=== PATIENT | female | born 1940 | race Caucasian/White ===

== ENCOUNTER 2016-10-13 19:50 | Emergency (ER) | payer MEDICARE ==
[~2016-10-13] VITALS: Ht 152.4 cm; Wt 69.9 kg
[~2016-10-13 19:50] MED LIST: ALN70T; ASP81TEC; ATN25T; COLE1TAB PO; FOLBIC; GBPN100C; HYDR1TAB PO; HYZAAR; LOSA1TAB15 PO; LUTE10TA PO; MTF500T PO; MULT1TAB63; NFCORC1000; OMEP-10; OMG1KC; SITA100T PO; VIT1CAPS25 PO
[2016-10-13 21:14] LABS: BASOPHILS % (AUTO) 0 % (0-10); EOSINOPHILS # (AUTO) 0.2 10^3/uL (0.0-0.3); EOSINOPHILS % (AUTO) 1 % (0-10); LYMPHOCYTES # (AUTO) 2.1 X 10^3 (1.0-4.0); LYMPHOCYTES % (AUTO) 15 % (12-44); MEAN CORPUSCULAR HEMOGLOBIN 30 PG (25-34); MEAN CORPUSCULAR HGB CONC 35 G/DL (32-36); MEAN CORPUSCULAR VOLUME 87 FL (80-99); MEAN PLATELET VOLUME 9.7 FL (7.4-10.4); MONOCYTES # (AUTO) 0.9 X 10^3 (0.0-1.0); MONOCYTES % (AUTO) 7 % (0-12); NEUTROPHILS % (AUTO) 77 % (42-75); PLATELET COUNT 265 10^3/uL (130-400); RED BLOOD COUNT 4.19 10^6/uL (4.35-5.85); RED CELL DISTRIBUTION WIDTH 12.7 % (10.0-14.5); WHITE BLOOD COUNT 14.2 10^3/uL (4.3-11.0)
--- NOTE | 2016-10-13 21:36 | ED GI ---
General Chief Complaint: Abdominal/GI Problems Stated Complaint: DIARRHEA Nursing Triage Note: PT TO ED 5 W/ FOR C/O INTERMITTENT DIARRHEA X1 WK, WORSE TODAY. ALSO C/O UPPER ABD PAIN W/. Sepsis Screen: No Definite Risk Source of Information: Patient, Spouse Exam Limitations: No Limitations History of Present Illness Time Seen By Provider: 21:36 Initial Comments 76-year-old female patient presents to the emergency department complains of generalized abdominal cramping with diarrhea for one week. Reports symptoms are worse today. Denies fever, chills, melena, vomiting, hematemesis. Timing/Duration: 1 Week Severity/Quality: Cramping Location: Generalized Abdomen Radiation: No Radiation Activities at Onset: None Modifying Factors: Worsens With Defecating, Worsens With Eating Allergies and Home Medications Allergies Coded Allergies: prochlorperazine (Unverified Allergy, Intermediate, 05/23/08) Home Medications Alendronate Sodium 70 Mg Tablet, (Reported) Aspirin 81 Mg Tabec, (Reported) Atenolol 25 Mg Tablet, (Reported) Calcium 1,000 Mg Capsule, (Reported) Ciprofloxacin HCl 500 Mg Tablet, 500 MG PO BID for 7 Days, #14 Ref 0 Prescribed by: ALIS ENCINAS on 10/13/162318 Colestipol Hcl 1 Gm Tablet, 1 GM PO BID, (Reported) Gabapentin 100 Mg Cap, (Reported) Hyoscyamine Sulfate 0.125 Mg Tab.rapdis, 0.125 MG PO Q6H PRN for SPASMS, #30 Ref 0 Prescribed by: ALIS ENCINAS on 10/13/162318 Losartan/Hydrochlorothiazide 1 Tab Tablet, 1 TAB PO, (Reported) Lutein 10 Mg Tablet, 10 MG PO, (Reported) Metformin Hcl 500 Mg Tablet, 1 EACH PO DAILY, (Reported) Metronidazole 500 Mg Tablet, 500 MG PO BID, #14 Ref 0 Prescribed by: ALIS ENCINAS on 10/13/162318 Multivitamins/Minerals Therap 1 Ea Tablet, (Reported) [place]han 3 Polyunsat Fatty Acids 1,000 Mg Cap, (Reported) Omeprazole 20 Mg Capsule., (Reported) Ondansetron 8 Mg Tab.rapdis, 8 MG PO Q6H PRN for NAUSEA/VOMITING-1ST LINE, #10 Ref 0 Prescribed by: ALIS ENCINAS on 4/6/17 2319 Sitagliptin Phosphate 100 Mg Tablet, 1 EACH PO DAILY, (Reported) Review of Systems Constitutional: no symptoms reported Respiratory: No Symptoms Reported Cardiovascular: No Symptoms Reported Gastrointestinal: See HPI, Denies Abdomen Distended, Abdominal Pain ( generalized abdominal cramping), Denies Blood Streaked Stools, Denies Constipated, Diarrhea, Nausea, Poor Appetite, Denies Poor Fluid Intake, Denies Rectal Bleeding, Denies Vomiting Genitourinary: Denies Burning, Denies Frequency, Denies Flank Pain, Denies Hematuria, Denies Pain Musculoskeletal: no symptoms reported Skin: no symptoms reported Psychiatric/Neurological: No Symptoms Reported All Other Systems Reviewed Negative Unless Noted: Yes (Negative excepted noted.) Past Dkgjegv-Aqypht-Afipvd Hx Patient Social History Alcohol Use: Denies Use Recreational Drug Use: No Smoking Status: Never a Smoker Recent Foreign Travel: No Contact w/Someone Who Travel: No Recent Infectious Disease Expo: No Recent Hopitalizations: No Immunizations Up To Date Date of Pneumonia Vaccine: Apr 09, 2011 Surgeries HX Surgeries: Yes Surgeries: Gallbladder, Hysterectomy Respiratory Hx Respiratory Disorders: No Cardiovascular Hx Cardiac Disorders: No Neurological Hx Neurological Disorders: No Genitourinary Hx Genitourinary Disorders: No Gastrointestinal Hx Gastrointestinal Disorders: No Musculoskeletal Hx Musculoskeletal Disorders: No Endocrine Hx Endocrine Disorders: Yes HEENT HX ENT Disorders: Yes HEENT Disorders: Macular Degeneration Loss of Vision: Denies Cancer Hx Cancer: No Psychosocial Hx Psychiatric Problems: No Reviewed Nursing Assessment Reviewed/Agree w Nursing PMH: Yes Family Medical History Significant Family History: No Pertinent Family Hx Physical Exam Vital Signs Capillary Refill : Less Than 3 Seconds General Appearance: WD/WN, no apparent distress Respiratory: lungs clear, normal breath sounds, no respiratory distress Cardiovascular: normal peripheral pulses, regular rate, rhythm, no murmur Gastrointestinal: normal bowel sounds, soft, no organomegaly, No distended, guarding (left lower quadrant), No rebound, tenderness (generalized abdominal tenderness) Extremities: no pedal edema, normal capillary refill Back: normal inspection, no CVA tenderness Neurologic/Psychiatric: alert, normal mood/affect, oriented x 3 Progress/Results/Core Measures Results/Orders Lab Results Laboratory Tests Test 10/13/16 21:04 10/13/16 21:42 Range/Units White Blood Count 14.2 H 4.3-11.0 10^3/uL Red Blood Count 4.19 L 4.35-5.85 10^6/uL Hemoglobin 12.7 11.5-16.0 G/DL Hematocrit 37 35-52 % Mean Corpuscular Volume 87 80-99 FL Mean Corpuscular Hemoglobin 30 25-34 PG Mean Corpuscular Hemoglobin Concent 35 32-36 G/DL Red Cell Distribution Width 12.7 10.0-14.5 % Platelet Count 265 130-400 10^3/uL Mean Platelet Volume 9.7 7.4-10.4 FL Neutrophils (%) (Auto) 77 H 42-75 % Lymphocytes (%) (Auto) 15 12-44 % Monocytes (%) (Auto) 7 0-12 % Eosinophils (%) (Auto) 1 0-10 % Basophils (%) (Auto) 0 0-10 % Neutrophils # (Auto) 11.0 H 1.8-7.8 X 10^3 Lymphocytes # (Auto) 2.1 1.0-4.0 X 10^3 Monocytes # (Auto) 0.9 0.0-1.0 X 10^3 Eosinophils # (Auto) 0.2 0.0-0.3 10^3/uL Basophils # (Auto) 0.0 0.0-0.1 10^3/uL Sodium Level 137 135-145 MMOL/L Potassium Level 4.4 3.6-5.0 MMOL/L Chloride Level 105 98-107 MMOL/L Carbon Dioxide Level 22 21-32 MMOL/L Anion Gap 10 5-14 MMOL/L Blood Urea Nitrogen 17 7-18 MG/DL Creatinine 1.05 0.60-1.30 MG/DL Estimat Glomerular Filtration Rate 51 BUN/Creatinine Ratio 16 Glucose Level 125 H 70-105 MG/DL Calcium Level 9.5 8.5-10.1 MG/DL Total Bilirubin 0.6 0.1-1.0 MG/DL Aspartate Amino Transf (AST/SGOT) 37 H 5-34 U/L Alanine Aminotransferase (ALT/SGPT) 49 0-55 U/L Alkaline Phosphatase 73 40-136 U/L C-Reactive Protein High Sensitivity 0.52 H 0.00-0.50 MG/DL Total Protein 7.9 6.4-8.2 G/DL Albumin 4.3 3.2-4.5 G/DL Urine Color YELLOW Urine Clarity SLIGHTLY CLOUDY Urine pH 5 5-9 Urine Specific Ullin 1.025 H 1.016-1.022 Urine Protein NEGATIVE NEGATIVE Urine Glucose (UA) NEGATIVE NEGATIVE Urine Ketones NEGATIVE NEGATIVE Urine Nitrite NEGATIVE NEGATIVE Urine Bilirubin NEGATIVE NEGATIVE Urine Urobilinogen NORMAL NORMAL MG/DL Urine Leukocyte Esterase 1+ H NEGATIVE Urine RBC (Auto) NEGATIVE NEGATIVE Urine RBC NONE /HPF Urine WBC 0-2 /HPF Urine Squamous Epithelial Cells RARE /HPF Urine Crystals NONE /LPF Urine Bacteria NONE /HPF Urine Casts NONE /LPF Urine Mucus NEGATIVE /LPF Urine Culture Indicated NO My Orders Orders - ALIS ENCINAS Saline Lock/Iv-Start (10/13/16 20:45) Cbc With Automated Diff (10/13/16 20:45) Comprehensive Metabolic Panel (10/13/16 20:45) Hs C Reactive Protein (10/13/16 20:45) Ua Culture If Indicated (10/13/16 20:45) Saline Lock/Iv-Start (10/13/16 20:45) Ct Abdomen/Pelvis W (10/13/16 21:52) Ns Iv 1000 Ml (Sodium Chloride 0.9%) (10/13/16 21:52) Iohexol Injection (Omnipaque 350 Mg/Ml 1 (10/13/16 22:00) Ns (Ivpb) (Sodium Chloride 0.9% Ivpb Bag (10/13/16 22:00) Medications Given in ED Vital Signs/I&O Blood Pressure Mean: 105 Diagnostic Imaging Diagonstic Imaging: CT Plain Films/CT/US/NM/MRI: abdomen, pelvis Comments Apparent thickening of the colon may be due to under distention or colitis. No free fluid or free air. Incidental mild hepatomegaly and a tiny fat-containing ventral abdominal wall hernia. Prominent appendix measuring up to 7 mm in diameter without periappendiceal inflammatory changes. Reviewed: Other ([facility] report reviewed) Departure Communication Progress Notes Laboratory and diagnostic findings discussed with the patient. Patient reports feeling better with IV fluids. Plan for discharge to home. Patient given prescriptions for metronidazole and Cipro due to a history of diverticulitis. Patient reports symptoms are similar to previous episodes. Patient also given prescriptions for Levsin and Zofran. Patient to follow-up with her primary care physician for recheck. Impression Impression: Primary Impression: Diarrhea Additional Impressions: Nausea Abdominal cramping, generalized Disposition: HOME, SELF-CARE Condition: Improved Departure-Patient Inst. Decision time for Depature: 23:16 Referrals: HUSSEIN IBARRA DO (PCP/Family) Primary Care Physician Patient Instructions: Diarrhea in Adolescents and Adults, Microscopic Colitis Add. Discharge Instructions: All discharge instructions reviewed with patient and/or family. Voiced understanding. Medications as instructed. Tylenol eohl-ues-aicmxrp as directed for pain. Continue usual home medications. Clear liquid diet until symptoms improve, then increase diet slowly to a low-fat , bland diet. Follow-up with your family practitioner for recheck, call for appointment time. Return to the emergency department for worsened abdominal pain, fever, diarrhea , rectal bleeding, vomiting blood, or any other concerns. Scripts Metronidazole (Metronidazole) 500 Mg Tablet 500 MG PO BID, #14 TAB 0 Refills Prov: ALIS ENCINAS 10/13/16 Ciprofloxacin HCl (Ciprofloxacin HCl) 500 Mg Tablet 500 MG PO BID for 7 Days, #14 TAB 0 Refills Prov: ALIS ENCINAS 10/13/16 Ondansetron (Ondansetron Odt) 8 Mg Tab.rapdis 8 MG PO Q6H Y for NAUSEA/VOMITING-1ST LINE, #10 TAB 0 Refills Prov: ALIS ENCINAS 10/13/16 Hyoscyamine Sulfate (Hyoscyamine Sulfate) 0.125 Mg Tab.rapdis 0.125 MG PO Q6H Y for SPASMS, #30 TAB 0 Refills Prov: ALIS ENCINAS 10/13/16 ALIS ENCINAS Oct 13, 2016 21:36
[2016-10-13 21:42] LABS: ALBUMIN 4.3 G/DL (3.2-4.5); BILIRUBIN,TOTAL 0.6 MG/DL (0.1-1.0); CALCIUM 9.5 MG/DL (8.5-10.1); CREATININE SERUM 1.05 MG/DL (0.60-1.30); POTASSIUM 4.4 MMOL/L (3.6-5.0); TOTAL PROTEIN 7.9 G/DL (6.4-8.2); hs C REACTIVE PROTEIN 0.52 MG/DL (0.00-0.50)
[2016-10-13 21:49] LABS: BILIRUBIN,URINE NEGATIVE (NEGATIVE); KETONES,URINE NEGATIVE (NEGATIVE); LEUKOCYTE ESTERASE ,URINE 1+ (NEGATIVE); NITRITE,URINE NEGATIVE (NEGATIVE); PH,URINE 5 (5-9); PROTEIN,URINE NEGATIVE (NEGATIVE); UROBILINOGEN,URINE NORMAL (NORMAL)
[2016-10-13] MEDS ORDERED: NS IV 1000 ML 1,000 ML IV ONE (21:52)
[2016-10-13 21:57] LABS: SQUAMOUS EPITHELIAL CELL,UR RARE /HPF; WBC,URINE 0-2 /HPF
[2016-10-13] MEDS ORDERED: NS 100 ML (IVPB) BAG IV ONE (22:00)
[2016-10-13] MEDS ORDERED: IOHEXOL 350 MG/ML 100 ML (OMNIPAQUE 350) VIAL IV ONE (22:00)
[2016-10-13] MEDS ORDERED: HYOS0.1217 PO (23:19)
[2016-10-13] MEDS ORDERED: METR500T21 PO (23:19)
[2016-10-13] MEDS ORDERED: ONDA8TAB13 PO (23:19)
[2016-10-13] MEDS ORDERED: CIPR500T4 PO (23:19)
[2016-10-13 23:53] VITALS: BP 162/66
--- NOTE | 2016-10-14 08:43 | Diagnostic Imaging Report ---
PROCEDURE: CT abdomen and pelvis with contrast. TECHNIQUE: Multiple contiguous axial images were obtained through the abdomen and pelvis after administration of intravenous contrast. INDICATION: Diarrhea. 100 mL of Omnipaque 350 is administered intravenously. FINDINGS: The lung bases appear clear. The liver, the spleen, and the adrenal glands appear unremarkable. The pancreatic parenchyma is atrophic with no focal mass. There is a small hiatal hernia. Cholecystectomy clips are seen. The kidneys have symmetric enhancement and contrast excretion. There is no hydronephrosis. The abdominal aorta is normal in caliber. No para-aortic significantly enlarged lymph node is seen. There is mild thickening in the colonic wall and numerous diverticulosis within the sigmoid colon. The colonic wall thickening is not limited to the sigmoid; however, it is less prominent in the right colon. There are no pericolonic inflammatory changes seen. No evidence of bowel obstruction. The slight wall thickening also extends to the base of the appendix without periappendiceal inflammatory changes. This is favored to be secondary to colitis rather than appendicitis. There is a supraumbilical small fat-containing hernia. No significant free fluid or fluid collection in the abdomen or pelvis is seen. There is suggestion of prior hysterectomy. Correlate with surgical history. The osseous structures demonstrate degenerative changes in the lower lumbar spine and a compression fracture of T11 vertebral body that appears to be old. IMPRESSION: 1. There is mild colonic wall thickening suggestive of inflammatory or infectious colitis. This does not appear to be related to diverticulitis. Numerous diverticulosis in the sigmoid colon seen. 2. Small fat-containing supraumbilical hernia. 3. Small hiatal hernia. 4. The base of the appendix demonstrates slight thickening which is favored to be related to the colonic abnormality rather than appendicitis. This reading agrees with the [facility] report. Dictated by: Dictated on workstation # [id number]
--- OUTSIDE RECORDS SUMMARY | 2016-11-14 00:16 | XMS REPORT | Continuity of Care Document ---
Author Author [employer] Organization [facility] Address Unknown Phone Unavailable Care Team Providers Care Casino Manager Name Role Phone [employer] Unavailable Unavailable Problems Medications Allergies, Adverse Reactions, Alerts Immunizations Results Vital Signs Encounters Procedures Plan of Care Social History Assessment and Plan Family History Value Date Source Advance Directives Order Name Results Value Date Source
--- OUTSIDE RECORDS SUMMARY | 2016-11-14 00:16 | XMS REPORT | Continuity of Care Document ---
Author Author [facility] Organization [facility] Address Unknown Phone Unavailable Allergies Active Description Code Type Severity Reaction Onset Reported/Identified Relationship to Patient Clinical Status Yes prochlorperazine [id number] Drug Allergy Moderate N/A 05/23/2008 Medications Problems Date Dx Coded Attending Type Code Diagnosis Diagnosed By 11/29/2011 Ot 562.10 11/29/2011 Ot 787.91 11/29/2011 Ot V12.72 03/15/2012 Ot 805.2 03/15/2012 Ot 959.19 03/15/2012 Ot E000.8 03/15/2012 Ot E849.0 03/15/2012 Ot E885.9 04/23/2015 Ot 217 04/23/2015 Ot 610.8 04/23/2015 Ot V72.84 04/23/2015 Ot 724.02 04/23/2015 Ot 738.4 04/23/2015 Ot 756.15 04/23/2015 Ot 805.2 04/23/2015 Ot V54.17 04/23/2015 Ot 733.00 04/23/2015 HUSSEIN IBARRA DO Ot 786.09 04/23/2015 RICK IBARRA Ot 443.9 05/13/2015 HUSSEIN IBARRA DO Ot M81.0 10/14/2016 ALIS TILLMAN Ot R10.84 GENERALIZED ABDOMINAL PAIN 10/14/2016 ALIS TILLMAN Ot R11.0 NAUSEA 10/14/2016 ALIS TILLMAN Ot R19.7 DIARRHEA, UNSPECIFIED 10/14/2016 ALIS TILLMAN Ot Z79.82 INTERMEDIATE (CURRENT) USE OF ASPIRIN 10/14/2016 ALIS TILLMAN Ot Z79.899 OTHER [employer]ER (CURRENT) DRUG THERAPY Procedures Results Test Result Range Complete blood count (CBC) with automated white blood cell (WBC) differential - 10/13/16 21:04 Blood leukocytes automated count (number/volume) 14.2 10*3/ uL 4.3-11.0 Blood erythrocytes automated count (number/volume) 4.19 10*6 /uL 4.35-5.85 Venous blood hemoglobin measurement (mass/volume) 12.7 g/dL 11.5-16.0 Blood hematocrit (volume fraction) 37 % 35-52 Automated erythrocyte mean corpuscular volume 87 [foz_us] 80-99 Automated erythrocyte mean corpuscular hemoglobin (mass per erythrocyte) 30 pg 25-34 Automated erythrocyte mean corpuscular hemoglobin concentration measurement ( mass/volume) 35 g/dL 32-36 Automated erythrocyte distribution width ratio 12.7 % 10.0-14.5 Automated blood platelet count (count/volume) 265 10*3/uL 130-400 Automated blood platelet mean volume measurement 9.7 [foz_us ] 7.4-10.4 Automated blood neutrophils/100 leukocytes 77 % 42-75 Automated blood lymphocytes/100 leukocytes 15 % 12-44 Blood monocytes/100 leukocytes 7 % 0-12 Automated blood eosinophils/100 leukocytes 1 % 0-10 Automated blood basophils/100 leukocytes 0 % 0-10 Blood neutrophils automated count (number/volume) 11.0 10*3 1.8-7.8 Blood lymphocytes automated count (number/volume) 2.1 10*3 1.0-4.0 Blood monocytes automated count (number/volume) 0.9 10*3 0.0-1.0 Automated eosinophil count 0.2 10*3/uL 0.0-0.3 Automated blood basophil count (count/volume) 0.0 10*3/uL 0.0-0.1 Comprehensive metabolic panel - 10/13/16 21:04 Serum or plasma sodium measurement (moles/volume) 137 mmol/ L 135-145 Serum or plasma potassium measurement (moles/volume) 4.4 mmol/L 3.6-5.0 Serum or plasma chloride measurement (moles/volume) 105 mmol /L 98-107 Carbon dioxide 22 mmol/L 21-32 Serum or plasma anion gap determination (moles/volume) 10 mmol/L 5-14 Serum or plasma urea nitrogen measurement (mass/volume) 17 mg/dL 7-18 Serum or plasma creatinine measurement (mass/volume) 1.05 mg /dL 0.60-1.30 Serum or plasma urea nitrogen/creatinine mass ratio 16 NRG Serum or plasma creatinine measurement with calculation of estimated glomerular filtration rate 51 NRG Serum or plasma glucose measurement (mass/volume) 125 mg/dL 70-105 Serum or plasma calcium measurement (mass/volume) 9.5 mg/dL 8.5-10.1 Serum or plasma total bilirubin measurement (mass/volume) 0.6 mg/dL 0.1-1.0 Serum or plasma alkaline phosphatase measurement (enzymatic activity/volume) 73 U/L 40-136 Serum or plasma aspartate aminotransferase measurement (enzymatic activity/ volume) 37 U/L 5-34 Serum or plasma alanine aminotransferase measurement (enzymatic activity/volume ) 49 U/L 0-55 Serum or plasma protein measurement (mass/volume) 7.9 g/dL 6.4-8.2 Serum or plasma albumin measurement (mass/volume) 4.3 g/dL 3.2-4.5 Serum or plasma C reactive protein measurement (mass/volume) - 10/13/16 21:04 Serum or plasma C reactive protein measurement (mass/volume) 0.52 mg/dL 0.00-0.50 Complete urinalysis with reflex to culture - 10/13/16 21:42 Urine color determination YELLOW NRG Urine clarity determination SLIGHTLY CLOUDY NRG Urine pH measurement by test strip 5 5- 9 Specific gravity of urine by test strip 1.025 1.016-1.022 Urine protein assay by test strip, semi-quantitative NEGATIVE NEGATIVE Urine glucose detection by automated test strip NEGATIVE NEGATIVE Erythrocytes detection in urine sediment by light microscopy NEGATIVE NEGATIVE Urine ketones detection by automated test strip NEGATIVE NEGATIVE Urine nitrite detection by test strip NEGATIVE NEGATIVE Urine total bilirubin detection by test strip NEGATIVE NEGATIVE Urine urobilinogen measurement by automated test strip (mass/volume) NORMAL NORMAL Urine leukocyte esterase detection by dipstick 1+ NEGATIVE Automated urine sediment erythrocyte count by microscopy (number/high power field) NONE NRG Automated urine sediment leukocyte count by microscopy (number/high power field ) [HPF] NRG Bacteria detection in urine sediment by light microscopy NONE NRG Squamous epithelial cells detection in urine sediment by light microscopy RARE NRG Crystals detection in urine sediment by light microscopy NONE NRG Casts detection in urine sediment by light microscopy NONE NRG Mucus detection in urine sediment by light microscopy NEGATIVE NRG Complete urinalysis with reflex to culture NO NRG Encounters ACCT No. Visit Date/Time Discharge Status Pt. Type Provider Facility Loc./Unit Complaint [id number] 10/13/2016 19:51:00 2016 23:53:00 DIS Outpatient ALIS TILLMAN [facility] ER DIARRHEA [id number] 04/23/2015 09:56:00 2014 23:59:59 CLS Outpatient HUSSEIN IBARRA DO [facility] RAD [id number] 12/26/2013 08:17:00 2013 23:59:59 CLS Outpatient RICK IBARRA [facility] RAD [id number] 01/08/2013 06:24:00 2012 23:59:59 CLS Outpatient HUSSEIN IBARRA DO [facility] RAD [id number] 06/29/2012 08:12:00 Document Registration [id number] 03/22/2012 10:00:00 Document Registration [id number] 03/15/2012 19:42:00 Document Registration [id number] 11/29/2011 06:51:00 Document Registration [id number] 11/28/2011 07:58:00 Document Registration [id number] 08/03/2011 12:34:00 Document Registration
== END 2016-10-13 23:53 | disposition home or self-care (01) ==
LOC: EDUNIT# 19:50 → ER 19:51
DX: R19.7 Diarrhea, unspecified (principal); R11.0 Nausea; R10.84 Generalized abdominal pain; Z79.82 Long term (current) use of aspirin; Z79.899 Other long term (current) drug therapy
CPT/HCPCS: 36415; 74177; 80053; 81000; 85025; 86141; 96360

== ENCOUNTER 2017-06-07 09:55 | Outpatient (CLI) | payer MEDICARE ==
[~2017-06-07 09:55] MED LIST changes: +CIPR500T4 PO; +HYOS-6 PO; +METR500T21 PO; +ONDA8TAB13 PO
== END 2017-06-07 10:30 | disposition home or self-care (01) ==
LOC: SLEEP 09:55
PROVIDERS: ATTEND Internal Medicine
DX: G47.33 Obstructive sleep apnea (adult) (pediatric) (principal); G47.10 Hypersomnia, unspecified; I10 Essential (primary) hypertension

== ENCOUNTER 2017-06-29 19:33 | Outpatient (CLI) | payer MEDICARE | END 2017-06-30 06:45 | disposition home or self-care (01) | LOC: SLEEP 19:33 | PROVIDERS: ATTEND Otolaryngology Otolaryngology/Facial Plastic Surgery | DX: G47.33 Obstructive sleep apnea (adult) (pediatric) (principal) | CPT/HCPCS: 95811 ==

== ENCOUNTER 2017-10-28 12:16 | Emergency (ER) | payer MEDICARE ==
[~2017-10-28] VITALS: Ht 154.9 cm; Wt 71.2 kg
--- OUTSIDE RECORDS SUMMARY | 2017-10-28 12:21 | XMS REPORT | Continuity of Care Document ---
Author Author [facility] Organization [facility] Address Unknown Phone Unavailable Allergies Active Description Code Type Severity Reaction Onset Reported/Identified Relationship to Patient Clinical Status Yes prochlorperazine [id number] Drug Allergy Moderate N/A 05/23/2008 Medications There is no data. Problems Date Dx Coded Attending Type Code Diagnosis Diagnosed By 11/29/2011 Ot 562.10 11/29/2011 Ot 787.91 11/29/2011 Ot V12.72 03/15/2012 Ot 805.2 FX DORSAL VERTEBRA-CLOSE 03/15/2012 Ot 959.19 OTH INJURY OF OTHER SITES OF TRUNK 03/15/2012 Ot E000.8 OTHER EXTERNAL CAUSE STATUS 03/15/2012 Ot E849.0 ACCIDENT IN HOME 03/15/2012 Ot E885.9 FALL FROM SLIPPING, TRIPPING, OR STUMBLI 04/23/2015 Ot 217 04/23/2015 Ot 610.8 04/23/2015 Ot V72.84 04/23/2015 Ot 724.02 04/23/2015 Ot 738.4 04/23/2015 Ot 756.15 04/23/2015 Ot 805.2 04/23/2015 Ot V54.17 04/23/2015 Ot 733.00 04/23/2015 HUSSEIN IBARRA DO Ot 786.09 04/23/2015 RICK IBARRAP Ot 443.9 05/13/2015 HUSSEIN IBARRA DO Ot M81.0 10/13/2016 ALIS TILLMAN Ot R10.84 GENERALIZED ABDOMINAL PAIN 10/13/2016 ALIS TILLMAN Ot R11.0 NAUSEA 10/13/2016 ALIS TILLMAN Ot R19.7 DIARRHEA, UNSPECIFIED 10/13/2016 ALIS TILLMAN Ot 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 10/13/2016 ALIS TILLMAN Ot Z79.899 OTHER FPC (CURRENT) DRUG THERAPY 10/14/2016 ALIS TILLMAN Ot R10.84 GENERALIZED ABDOMINAL PAIN 10/14/2016 ALIS TILLMAN Ot R11.0 NAUSEA 10/14/2016 ALIS TILLMAN Ot R19.7 DIARRHEA, UNSPECIFIED 10/14/2016 ALIS TILLMAN Ot 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 10/14/2016 ALIS TILLMAN Ot Z79.899 OTHER GRADES 1 THROUGH 5 TEACHER (CURRENT) DRUG THERAPY 06/07/2017 HUSSEIN IBARRA DO Ot G47.10 HYPERSOMNIA, UNSPECIFIED 06/07/2017 HUSSEIN IBARRA DO, Ot G47.33 OBSTRUCTIVE SLEEP APNEA (ADULT) (PEDIATR 06/07/2017 HUSSEIN IBARRA DO Ot I10 ESSENTIAL (PRIMARY) HYPERTENSION 06/09/2017 HUSSEIN IBARRA DO Ot G47.10 HYPERSOMNIA, UNSPECIFIED 06/09/2017 HUSSEIN IBARRA DO, Ot G47.33 OBSTRUCTIVE SLEEP APNEA (ADULT) (PEDIATR 06/09/2017 HUSSEIN IBARRA DO Ot I10 ESSENTIAL (PRIMARY) HYPERTENSION 06/12/2017 Ot 724.02 SPINAL STENOSIS, LUMBAR REG, W/OUT NEURO 06/12/2017 Ot 738.4 ACQ SPONDYLOLISTHESIS 06/12/2017 Ot 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 06/12/2017 Ot 805.2 FX DORSAL VERTEBRA-CLOSE 06/12/2017 Ot V54.17 AFTERCARE HEALING TRAUMATIC FX VERTEBRAE 06/12/2017 Ot 733.00 OSTEOPOROSIS NOS 06/12/2017 HUSSEIN IBARRA DO Ot 786.09 RESPIRATORY ABNORM NEC 06/12/2017 RICK IBARRAP Ot 443.9 PERIPH VASCULAR DIS NOS 06/12/2017 HUSSEIN IBARRA DO Ot M81.0 AGE-RELATED OSTEOPOROSIS W/O CURRENT PAT 06/14/2017 HUSSEIN IBARRA DO Ot G47.10 HYPERSOMNIA, UNSPECIFIED 06/14/2017 HUSSEIN IBARRA DO Ot G47.33 OBSTRUCTIVE SLEEP APNEA (ADULT) (PEDIATR 06/14/2017 HUSSEIN IBARRA DO Ot I10 ESSENTIAL (PRIMARY) HYPERTENSION 06/23/2017 ANDREAS LEAL, AISSATOU Casey Ot G47.33 OBSTRUCTIVE SLEEP APNEA (ADULT) (PEDIATR 06/23/2017 ANDREAS LEAL, AISSATOU Casey Ot G47.33 OBSTRUCTIVE SLEEP APNEA (ADULT) (PEDIATR 06/23/2017 ANDREAS LEAL, AISSATOU Casey Ot G47.33 OBSTRUCTIVE SLEEP APNEA (ADULT) (PEDIATR 06/28/2017 ANDREAS LEAL, AISSATOU Casey Ot G47.33 OBSTRUCTIVE SLEEP APNEA (ADULT) (PEDIATR 06/28/2017 AISSATOU JOHNS MD Ot G47.33 OBSTRUCTIVE SLEEP APNEA (ADULT) (PEDIATR 06/29/2017 ANDREAS LEAL, AISSATOU Casey Ot G47.33 OBSTRUCTIVE SLEEP APNEA (ADULT) (PEDIATR 06/29/2017 AISSATOU JOHNS MD Ot G47.33 OBSTRUCTIVE SLEEP APNEA (ADULT) (PEDIATR 06/30/2017 AISSATOU JOHNS MD Ot G47.33 OBSTRUCTIVE SLEEP APNEA (ADULT) (PEDIATR 07/04/2017 AISSATOU JOHNS MD Ot G47.33 OBSTRUCTIVE SLEEP APNEA (ADULT) (PEDIATR Procedures There is no data. Results Test Result Range Complete blood count (CBC) with automated white blood cell (WBC) differential - 10/13/16 21:04 Blood leukocytes automated count (number/volume) 14.2 10*3/uL 4.3-11.0 Blood erythrocytes automated count (number/volume) 4.19 10*6/uL 4.35-5.85 Venous blood hemoglobin measurement (mass/volume) 12.7 [...] Automated blood platelet mean volume measurement 9.7 [foz_us] 7.4-10.4 Automated blood neutrophils/100 leukocytes 77 % [...] Serum or plasma sodium measurement (moles/volume) 137 mmol/L 135-145 Serum or plasma potassium measurement (moles/volume) 4.4 mmol/L 3.6-5.0 Serum or plasma chloride measurement (moles/volume) 105 mmol/L 98-107 Carbon dioxide 22 mmol/L 21-32 Serum or plasma anion gap determination (moles/volume) 10 mmol/L 5-14 Serum or plasma urea nitrogen measurement (mass/volume) 17 mg/dL 7-18 Serum or plasma creatinine measurement (mass/volume) 1.05 mg/dL 0.60-1.30 Serum or plasma urea nitrogen/creatinine mass [...] plasma C reactive protein measurement (mass/volume) 0.52 mg /dL 0.00-0.50 Complete urinalysis with reflex to culture - 10/13/16 21:42 Urine color determination YELLOW NRG Urine clarity determination SLIGHTLY CLOUDY NRG Urine pH measurement by test strip 5 5-9 Specific gravity of urine by test strip 1.025 1.016- 1.022 Urine protein assay by test strip, semi-quantitative [...] Status Pt. Type Provider Facility Loc./Unit Complaint [id number] 06/29/2017 19:33:00 06/30/2017 06:45:00 DIS Outpatient AISSATOU JOHNS MD [facility] SLEEP MAYA,HTN [id number] 06/07/2017 09:55:00 06/07/2017 10:30:00 DIS Outpatient HUSSEIN IBARRA DO [facility] SLEEP OBSTRUCTIVE SLEEP APNEA [id number] 10/13/2016 19:51:00 10/13/2016 23:53:00 DIS Emergency ALIS TILLMAN [facility] ER DIARRHEA [id number] 04/23/2015 09:56:00 04/23/2015 23:59:59 CLS Outpatient HUSSEIN IBARRA DO [facility] RAD OSTEOPOROSIS [id number] 12/26/2013 08:17:00 12/26/2013 23:59:59 CLS Outpatient RICK IBARRA [facility] RAD PVD [id number] 01/08/2013 06:24:00 01/08/2013 23:59:59 CLS Outpatient HUSSEIN IBARRA DO [facility] RAD GONZALEZ [id number] 06/29/2012 08:12:00 Document Registration [id number] 03/22/2012 10:00:00 Document Registration [id number] 03/15/2012 19:42:00 Document Registration [id number] 11/29/2011 06:51:00 Document Registration [id number] 11/28/2011 07:58:00 Document Registration [id number] 08/03/2011 12:34:00 Document Registration
--- OUTSIDE RECORDS SUMMARY | 2017-10-28 12:21 | XMS REPORT | Continuity of Care Document ---
Author Author [employer] Organization [facility] Address Unknown Phone Unavailable Care Team Providers Care Cocktail Server Name Role Phone [employer] Unavailable Unavailable Problems Medications Allergies, Adverse Reactions, Alerts Immunizations Results Vital Signs Encounters Procedures Plan of Care Social History Assessment and Plan Family History Advance Directives Functional Status
--- NOTE | 2017-10-28 13:20 | ED Respiratory ---
General Chief Complaint: Chest Wall/Rib Pain Stated Complaint: PAIN IN BACK W/ BREATHING Nursing Triage Note: Patient advises that she is experiencing left shoulder/chest pain only when taking a deep breath. She denies recent illness and states she has had an intermittent cough. History of Present Illness Date Seen by Provider: Oct 28, 2017 Time Seen by Provider: 13:00 Initial Comments 77-year-old female reports that she is having left posterior chest wall pain. She reports the pain has been intermittent over the last 2-3 months. She has a long-standing history of GERD and takes Prilosec as needed. The pain became worse over the last few days especially when she takes a deep breath. Her reports she's been coughing for several days, there is been no production with her cough. Timing/Duration: intermittent Severity: mild Prior Episodes/Possible Cause: no prior episodes Associated Symptoms: chest pain/soreness (posterior left chest wall), cough ( dry); No facial pain, No fever/chills, No headache, No muscle aches, No nasal congestion, No nasal drainage, No shortness of breath, No wheezing Allergies and Home Medications Allergies Coded Allergies: prochlorperazine (Unverified Allergy, Intermediate, 05/23/08) Home Medications Ciprofloxacin HCl 500 Mg Tablet, 500 MG PO BID Prescribed by: ALIS ENCINAS on 10/13/162318 Colestipol Hcl 1 Gm Tablet, 1 GM PO BID, (Reported) Hyoscyamine Sulfate 0.125 Mg Tab.rapdis, 0.125 MG PO Q6H PRN for SPASMS Prescribed by: ALIS ENCINAS on 10/13/162318 Metformin Hcl 500 Mg Tablet, 1 EACH PO DAILY, (Reported) Metronidazole 500 Mg Tablet, 500 MG PO BID Prescribed by: ALIS ENCINAS on 10/13/162318 Ondansetron 8 Mg Tab.rapdis, 8 MG PO Q6H PRN for NAUSEA/VOMITING-1ST LINE Prescribed by: ALIS ENCINAS on 10/13/162318 Sitagliptin Phosphate 100 Mg Tablet, 1 EACH PO DAILY, (Reported) Patient Home Medication List Home Medication List Reviewed: Yes Review of Systems Constitutional: no symptoms reported, see HPI Respiratory: see HPI, cough Cardiovascular: see HPI, chest pain (left posterior) Gastrointestinal: no symptoms reported, see HPI All Other Systems Reviewed Negative Unless Noted: Yes Past Dwrpwbt-Defrir-Vowyez Hx Past Med/Social Hx: Reviewed Nursing Past Med/Soc Hx Patient Social History Alcohol Use: Denies Use Recreational Drug Use: No Smoking Status: Never a Smoker 2nd Hand Smoke Exposure: No Recent Foreign Travel: No Contact w/Someone Who Travel: No Recent Infectious Disease Expo: No Recent Hopitalizations: No Physical Abuse: No Sexual Abuse: No Immunizations Up To Date Date of Pneumonia Vaccine: Apr 09, 2011 Past Medical History Surgeries: Yes Gallbladder, Hysterectomy Respiratory: No Cardiac: No Neurological: No Genitourinary: No Gastrointestinal: No Musculoskeletal: No Endocrine: Yes Diabetes, Non-Insulin dep HEENT: Yes Macular Degeneration Loss of Vision: Denies Cancer: No Psychosocial: No Nursing Suicide Risk Score: 0 Family Medical History No Pertinent Family Hx Physical Exam Vital Signs Vital Signs - First Documented 10/28/17 12:49 Temp 98.6 Pulse 66 Resp 16 B/P (MAP) 197/78 (117) Pulse Ox 97 O2 Delivery Room Air Capillary Refill : Less Than 3 Seconds General Appearance: WD/WN, no apparent distress Eyes: Bilateral Eye Normal Inspection, Bilateral Eye PERRL, Bilateral Eye Abnormal EOM HEENT: PERRL/EOMI, normal ENT inspection, TMs normal, pharynx normal Neck: non-tender, full range of motion, supple, normal inspection Respiratory: chest non-tender, lungs clear, normal breath sounds, other ( tenderness to palpation left posterior chest, no tenderness over the last 6 spinous processes.) Cardiovascular: normal peripheral pulses, regular rate, rhythm Gastrointestinal: normal bowel sounds, non tender, soft Neurologic/Psychiatric: no motor/sensory deficits, alert, normal mood/affect, oriented x 3 Skin: normal color, warm/dry Progress/Results/Core Measures Suspected Sepsis Recent Fever Within 48 Hours: No Infection Criteria Present: None New/Unexplained Altered Menta: No Sepsis Screen: No Definite Risk SIRS Temperature:98.6 Pulse: 66 Respiratory Rate: 16 Blood Pressure 197 /78 Mean: 117 Results/Orders My Orders Orders - DEANDRE MANTILLA Ketorolac Injection (Toradol Injection) (10/28/17 13:31) Ekg Tracing (10/28/17 13:31) Vital Signs/I&O 10/28/17 10/28/17 12:49 14:52 Temp 98.6 Pulse 66 80 Resp 16 14 B/P (MAP) 197/78 (117) 179/89 Pulse Ox 97 98 O2 Delivery Room Air Room Air Capillary Refill : Less Than 3 Seconds Blood Pressure Mean: 117 ECG Initial ECG Impression Date: Oct 28, 2017 Initial ECG Impression Time: 13:48 Initial ECG Rhythm: Normal Sinus Initial ECG Intervals: Normal Initial ECG Intervals [place] 168, QRS D1 42, QTC 500, QTC 483. [place] P 44, QRS -2, T 32. Initial ECG Comparisson: No Previous ECG Available Comment Sinus rhythm with left bundle branch block, reviewed with Dr. Singh agreed with interpretation. Diagnostic Imaging Diagonstic Imaging: Xray Plain Films/CT/US/NM/MRI: chest Comments NAME: [facility]OT[facility] KW[facility] REC#: [id number] PT STATUS: REG ER : 1940 PHYSICIAN: STACI SINGH MD ADMIT DATE: 10/28/17/ER Draft Date of Exam:10/28/17 CHEST PA/LAT (2 VIEW) INDICATION: Left-sided chest pain, back pain. FINDINGS: Lungs are clear. Heart and vessels normal. There is no effusion or pneumothorax. IMPRESSION: No acute appearing abnormality. Dictated on workstation # [id number] Dict: 10/28/17 1306 Trans: 10/28/17 1320 [id number] Interpreted by: MARS HACKETT Electronically signed by: Departure Impression Primary Impression: GERD (gastroesophageal reflux disease) Qualified Codes: K21.9 - Gastro-esophageal reflux disease without esophagitis Additional Impression: Pleurisy Disposition: 01 HOME, SELF-CARE Condition: Stable Departure-Patient Inst. Decision time for Depature: 14:45 Referrals: HUSSEIN YOUNGER DO (PCP/Family) Primary Care Physician Patient Instructions: Acid Reflux (Gastroesophageal Reflux Disease), Adult (DC) , Pleuritic Chest Pain (DC) Add. Discharge Instructions: Continue taking Prilosec as previously ordered. Follow instructions regarding GERD. You may use Tylenol 650 mg every 6-8 hours for pain. If Symptoms continue follow-up with Dr. Younger. If pain worsens or is associated with sweating, vomiting, or weakness return to the emergency department immediately or call 911. All discharge instructions reviewed with patient and/or family. Voiced understanding. Copy Copies To 1: HUSSEIN YOUNGER AMY ARNP Oct 28, 2017 13:20
--- NOTE | 2017-10-28 13:21 | Diagnostic Imaging Report ---
INDICATION: Left-sided chest pain, back pain. FINDINGS: Lungs are clear. Heart and vessels normal. There is no effusion or pneumothorax. IMPRESSION: No acute appearing abnormality. Dictated by: Dictated on workstation # [id number]
[2017-10-28] MEDS ORDERED: KETOROLAC 60 MG/2 ML VIAL IM STA (13:31)
[2017-10-28 14:52] VITALS: BP 179/89
== END 2017-10-28 14:51 | disposition home or self-care (01) ==
LOC: EDUNIT# 12:16 → ER 12:17
DX: K21.9 Gastro-esophageal reflux disease without esophagitis (principal); R09.1 Pleurisy; E11.9 Type 2 diabetes mellitus without complications; Z90.710 Acquired absence of both cervix and uterus; Z98.890 Other specified postprocedural states; Z79.84 Long term (current) use of oral hypoglycemic drugs; Z88.8 Allergy status to other drugs, medicaments and biological substances
CPT/HCPCS: 71046; 93005; 96372

== ENCOUNTER 2018-06-18 10:38 | Emergency (ER) | payer MEDICARE ==
[~2018-06-18] VITALS: Ht 154.9 cm; Wt 71.2 kg
[~2018-06-18 10:38] MED LIST changes: +METR-197 PO; -METR500T21 PO
--- OUTSIDE RECORDS SUMMARY | 2018-06-18 10:43 | XMS REPORT | Continuity of Care Document ---
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 10/13/2016 ALIS TILLMAN Ot Z79.899 OTHER FDC (CURRENT) DRUG THERAPY 10/14/2016 ALIS TILLMAN Ot R10.84 GENERALIZED ABDOMINAL PAIN 10/14/2016 ALIS TILLMAN Ot R11.0 NAUSEA 10/14/2016 ALIS TILLMAN Ot R19.7 DIARRHEA, UNSPECIFIED 10/14/2016 ALIS TILLMAN Ot 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 10/14/2016 ALIS TILLMAN Ot Z79.899 OTHER WOVEN PAPER HAT MENDER (CURRENT) DRUG THERAPY 06/07/2017 HUSSEIN IBARRA DO [...] APNEA (ADULT) (PEDIATR 06/23/2017 ANDREAS LEAL, AISSATOU P Ot G47.33 OBSTRUCTIVE SLEEP APNEA (ADULT) (PEDIATR 06/23/2017 ANDREAS LEAL, AISSATOU P Ot G47.33 OBSTRUCTIVE SLEEP APNEA (ADULT) (PEDIATR 06/28/2017 ANDREAS LEAL, AISSATOU P Ot G47.33 OBSTRUCTIVE SLEEP APNEA (ADULT) (PEDIATR 06/28/2017 ANDREAS LEAL, AISSATOU P Ot G47.33 OBSTRUCTIVE SLEEP APNEA (ADULT) (PEDIATR 06/29/2017 ANDREAS LEAL, AISSATOU P Ot G47.33 OBSTRUCTIVE SLEEP APNEA (ADULT) (PEDIATR 06/29/2017 ANDREAS LEAL, AISSATOU P Ot G47.33 OBSTRUCTIVE SLEEP APNEA (ADULT) (PEDIATR 06/30/2017 ANDREAS LEAL, AISSATOU P Ot G47.33 OBSTRUCTIVE SLEEP APNEA (ADULT) (PEDIATR 07/04/2017 ANDREAS LEAL, AISSATOU P Ot G47.33 OBSTRUCTIVE SLEEP APNEA (ADULT) (PEDIATR 10/28/2017 ANNALEE DEANDRE METAL FABRICATING SUPERVISOR Ot E11.9 TYPE 2 DIABETES MELLITUS WITHOUT COMPLIC 10/28/2017 ANNALEE, DEANDRE METAL FABRICATING SUPERVISOR Ot K21.9 GASTRO-ESOPHAGEAL REFLUX DISEASE WITHOUT 10/28/2017 ANNALEE, DEANDRE METAL FABRICATING SUPERVISOR Ot R07.89 OTHER CHEST PAIN 10/28/2017 ANNALEE, DEANDRE METAL FABRICATING SUPERVISOR Ot R09.1 PLEURISY 10/28/2017 ANNALEE, DEANDRE METAL FABRICATING SUPERVISOR Ot Z79.84 FDC (CURRENT) USE OF ORAL HYPOGLYC 10/28/2017 ANNALEE DEANDRE METAL FABRICATING SUPERVISOR Ot Z88.8 ALLERGY STATUS TO OTH DRUG/MEDS/BIOL SUB 10/28/2017 ANNALEE DEANDRE METAL FABRICATING SUPERVISOR Ot Z90.710 ACQUIRED ABSENCE OF BOTH CERVIX AND UTER 10/28/2017 ANNALEE DEANDRE METAL FABRICATING SUPERVISOR Ot Z98.890 OTHER SPECIFIED POSTPROCEDURAL STATES 10/30/2017 ANNALEE DEANDRE METAL FABRICATING SUPERVISOR Ot E11.9 TYPE 2 DIABETES MELLITUS WITHOUT COMPLIC 10/30/2017 ANNALEE, DEANDRE METAL FABRICATING SUPERVISOR Ot K21.9 GASTRO-ESOPHAGEAL REFLUX DISEASE WITHOUT 10/30/2017 ANNALEE, DEANDRE METAL FABRICATING SUPERVISOR Ot R07.89 OTHER CHEST PAIN 10/30/2017 ANNALEE, DEANDRE METAL FABRICATING SUPERVISOR Ot R09.1 PLEURISY 10/30/2017 ANNALEE, DEANDRE METAL FABRICATING SUPERVISOR Ot Z79.84 FDC (CURRENT) USE OF ORAL HYPOGLYC 10/30/2017 ANNALEE DEANDRE METAL FABRICATING SUPERVISOR Ot Z88.8 ALLERGY STATUS TO OTH DRUG/MEDS/BIOL SUB 10/30/2017 DEANDRE MANTLILA Ot Z90.710 ACQUIRED ABSENCE OF BOTH CERVIX AND UTER 10/30/2017 DEANDRE MANTILLA Ot Z98.890 OTHER SPECIFIED POSTPROCEDURAL STATES Procedures There is no data. Results Test [...] Status Pt. Type Provider Facility Loc./Unit Complaint [id number] 10/28/2017 12:17:00 10/28/2017 14:51:00 DIS Emergency DEANDRE MANTILLAP [facility] ER PAIN IN BACK W/ BREATHING [id number] 06/29/2017 19:33:00 06/30/2017 06:45:00 DIS Outpatient AISSATOU JOHNS MD [facility] SLEEP MAYA,HTN [id number] 06/07/2017 09:55:00 06/07/2017 10:30:00 DIS Outpatient HUSSEIN IBARRA DO [facility] SLEEP OBSTRUCTIVE SLEEP APNEA [id number] 10/13/2016 19:51:00 10/13/2016 23:53:00 DIS Emergency ALIS TILLMAN [facility] ER DIARRHEA [id number] 04/23/2015 09:56:00 04/23/2015 23:59:59 CLS Outpatient HUSSEIN IBARRA DO [facility] RAD OSTEOPOROSIS [id number] 12/26/2013 08:17:00 12/26/2013 23:59:59 CLS Outpatient RICK IBARRA [facility] RAD PVD [id number] 01/08/2013 06:24:00 01/08/2013 23:59:59 CLS Outpatient HUSSEIN IBARRA DO [facility] RAD GONZALEZ [id number] 06/29/2012 08:12:00 Document Registration [id number] 03/22/2012 10:00:00 Document Registration [id number] 03/15/2012 19:42:00 Document Registration [id number] 11/29/2011 06:51:00 Document Registration [id number] 11/28/2011 07:58:00 Document Registration [id number] 08/03/2011 12:34:00 Document Registration
--- NOTE | 2018-06-18 11:31 | ED Fall/Injury ---
General Stated Complaint: FALL AND BACK PAIN Source: patient Exam Limitations: no limitations History of Present Illness Date Seen by Provider: Jun 18, 2018 Time Seen by Provider: 11:29 Initial Comments From home with reports of a fall. She was standing on a stool at home cleaning blinds when the stool tipped and she fell. She struck the right side of her upper back around the scapular region and chest wall on the vanity in her bathroom. She did hit her head but denies any headache loss of consciousness neck pain nausea vomiting or confusion. Her complaint is of pain to the right posterior lateral chest wall worse with movement and coughing. Occurred: just prior to arrival Severity: moderate Injuries/Pain Location: back Context: lost balance Loss of Consciousness: no loss of consciousness Associated Symptoms (Fall): No Headache, No Neck Pain Allergies and Home Medications Allergies Coded Allergies: prochlorperazine (Unverified Allergy, Intermediate, 05/23/08) Home Medications Colestipol Hcl 1 Gm Tablet, 1 GM PO BID, (Reported) Hyoscyamine Sulfate 0.125 Mg Tab.rapdis, 0.125 MG PO Q6H PRN for SPASMS Prescribed by: ALIS ENCINAS on 10/13/162318 Metformin Hcl 500 Mg Tablet, 1 EACH PO DAILY, (Reported) Metronidazole 500 Mg Tablet, 500 MG PO BID Prescribed by: ALIS ENCINAS on 10/13/162318 Ondansetron 8 Mg Tab.rapdis, 8 MG PO Q6H PRN for NAUSEA/VOMITING-1ST LINE Prescribed by: ALIS ENCINAS on 10/13/162318 Sitagliptin Phosphate 100 Mg Tablet, 1 EACH PO DAILY, (Reported) Patient Home Medication List Home Medication List Reviewed: Yes Review of Systems Review of Systems Constitutional: see HPI Eyes: No Symptoms Reported Ears, Nose, Mouth, Throat: no symptoms reported Respiratory: no symptoms reported Cardiovascular: no symptoms reported Genitourinary: no symptoms reported Musculoskeletal: see HPI, back pain, neck pain Skin: no symptoms reported Psychiatric/Neurological: No Symptoms Reported Past Fcggpvk-Gdgrht-Clmtio Hx Patient Social History 2nd Hand Smoke Exposure: No Recent Foreign Travel: No Contact w/Someone Who Travel: No Recent Hopitalizations: No Immunizations Up To Date Date of Pneumonia Vaccine: Apr 09, 2011 Past Medical History Surgeries: Yes Gallbladder, Hysterectomy Respiratory: No Cardiac: No Neurological: No Genitourinary: No Gastrointestinal: No Musculoskeletal: No Endocrine: Yes Diabetes, Non-Insulin dep HEENT: Yes Macular Degeneration Loss of Vision: Denies Cancer: No Psychosocial: No Family Medical History No Pertinent Family Hx Physical Exam Vital Signs Vital Signs - First Documented 06/18/18 11:25 Temp 98.1 Pulse 63 Resp 18 B/P (MAP) 186/87 (120) Pulse Ox 98 Capillary Refill : Height, Weight, BMI Height: 5'1.00" Weight: 157lbs. oz. [id number]; BMI Method:Stated General Appearance: WD/WN, no apparent distress, other (ambulatory into room 5 without use of assistive device.) HEENT: PERRL/EOMI, normal ENT inspection, TMs normal Neck: non-tender, normal inspection; No tender lateral, No tender midline Cardiovascular: regular rate, rhythm, no murmur Respiratory: normal breath sounds, no respiratory distress, no accessory muscle use, other (right lateral chest wall is without erythema abrasion or ecchymosis but is tender to palpation) Gastrointestinal: normal bowel sounds, non tender, soft Neurologic/Psychiatric: alert, normal mood/affect, oriented x 3 Skin: normal color, warm/dry Flushing Coma Score Best Eye Response: (4) Open Spontaneously Best Verbal Response: (5) Oriented Best Motor Response: (6) Obeys Commands Jacqueline Total: 15 Progress/Results/Core Measures Results/Orders My Orders Orders - ISRAEL JACOME APRN Ct Head/Cervical Spine Wo (06/18/18 11:32) Ct Chest Wo (06/18/18 11:32) Vital Signs/I&O 06/18/18 11:25 Temp 98.1 Pulse 63 Resp 18 B/P (MAP) 186/87 (120) Pulse Ox 98 Diagnostic Imaging Diagonstic Imaging: CT Comments NAME: DOROTHY KWONG [facility] REC#: [id number] PT STATUS: REG ER : 1940 PHYSICIAN: ISRAEL JACOME APRN ADMIT DATE: 06/18/18/ER Draft Date of Exam:06/18/18 CT CHEST WO PROCEDURE: CT chest without contrast. TECHNIQUE: Multiple contiguous axial images were obtained through the chest without the use of intravenous contrast. INDICATION: Trauma, status post fall backwards with right upper posterior chest and back pain. COMPARISON: None FINDINGS: Given limitations of noncontrast imaging, a few mildly prominent mediastinal lymph nodes. A precarinal lymph node is borderline measuring 18 x 12 mm. There are a few scattered axillary lymph nodes. Heart size is enlarged with moderate severity coronary artery calcification. Dense mitral valvular calcification. No significant pericardial effusion. No appreciable mediastinal hematoma. Thoracic aortic contour unremarkable with minimal wall calcification. Small hiatal hernia present. No significant infiltrate or findings suggesting contusion. No pneumothorax. Trace right pleural effusion. Cholecystectomy clips in the right upper quadrant. No upper abdominal ascites or free air. Additional perhaps clip within the subcutaneous tissues of the anterior right abdominal wall. There is offset at the inferior body and tip of the scapula suggestive of mildly displaced acute fracture with associated edema/hematoma in this region. There is also presence of a relatively nondisplaced fracture of the posterolateral right seventh rib. Old, ununited left posterior ninth rib fracture. There is moderate loss of height at the T11 vertebral body. While indeterminate it appears to likely be nonacute. Multilevel thoracic spondylosis is present. Slightly accentuated kyphotic curvature. Prominent endplate spurring is noted particularly anteriorly and laterally. No high degree osseous spinal canal narrowing. IMPRESSION: 1. Comminuted mildly displaced fracture involving the inferior body and tip of the right scapula. 2. Relatively nondisplaced right lateral seventh rib fracture. 3. Trace right pleural effusion. Dictated on workstation # [id number] Dict: 06/18/18 1302 Trans: 06/18/18 1320 [facility] [id number] Interpreted by: YESSENIA VENTURA DO Electronically signed by: Departure Impression Primary Impression: Right scapula fracture Qualified Codes: S42.111A - Displaced fracture of body of scapula, right shoulder, initial encounter for closed fracture Additional Impression: Right rib fracture Qualified Codes: S22.31XA - Fracture of one rib, right side, initial encounter for closed fracture Disposition: 01 HOME, SELF-CARE Condition: Stable Departure-Patient Inst. Decision time for Depature: 13:28 Referrals: MICHAEL PANCHAL MD, JOHN T MD STRINGER, ROBERT F DO SULLIVAN, WILLIAM J DO (PCP/Family) Primary Care Physician AISSATOU FARFAN MD Patient Instructions: RIB FRACTURE Add. Discharge Instructions: 1. Use the incentive spirometer to ensure that you're able to take deep breaths as these chest wall injuries can contribute to development of pneumonia. Return to ER for intolerable pain, fevers or other concerns. Take pain medication as needed. Follow-up with your regular doctor later this week for recheck and the orthopedic surgeon of your choosing should be called today to make an appointment to be seen within the next 2 weeks. Wear Sling for comfort. Scripts Hydrocodone/Acetaminophen (Mars 5-325 Tablet) 1 Each Tablet 1 EACH PO Q6H PRN for PAIN-MODERATE MDD 10, #20 TAB Prov: ISRAEL JACOME APRN 06/18/18 Images Torso/Trunk 1 - Tenderness Copy Copies To 1: HUSSEIN IBARRA PETER J APRN Jun 18, 2018 11:31
[2018-06-18] MEDS ORDERED: CLOP75TA28 (11:52)
--- NOTE | 2018-06-18 13:07 | Diagnostic Imaging Report ---
PROCEDURE: CT head and CT cervical spine without contrast. TECHNIQUE: Multiple contiguous axial images were obtained through the brain and cervical spine without the use of intravenous contrast. Sagittal and coronal reformations through the cervical spine were then performed. INDICATION: Status post fall backwards, neck pain. CORRELATION STUDY: None FINDINGS: CT HEAD: Ventricles and sulci are age-appropriate. No abnormal areas of decreased attenuation to suggest edema. No midline shift or mass effect. No suggestion for acute intracranial hemorrhage. Basilar cisterns are maintained. Mild intracranial vascular calcification present. Bony calvarium intact with mild diffuse hyperostosis present. Paranasal sinus and mastoid air cells are generally clear. CT CERVICAL SPINE: Reformatted images demonstrate trace anterolisthesis of C3 on C4 offset of 2 mm, trace anterolisthesis 3-4 mm of C6 on C7 and 2 mm C7 on T1, likely degenerative in nature. Traumatic subluxation is not suggested. There is diffuse disc space narrowing at essentially all levels but is slightly more pronounced at the C4-C5, C5-6, and C6-C7 levels. There is mild endplate spurlike formation at multiple levels which does result in mild encroachment upon the spinal canal and foramina. The odontoid intact, occipital condyles maintained with lateral masses of C1 and C2 aligned. Scattered areas of asymmetric hypertrophic facet arthropathy is present. There is a vertical lucency through the posterior pedicle of C6 on the left which may be developmental or owing to prior injury. Additionally, a slightly less well-defined but what appears to be likely chronic defect on the right pedicle as well. This lucency extends to the transverse foramina. Small rounded low-density foci at the right lobe of the thyroid gland, nonspecific as to etiology. A few scattered but non-pathologically enlarged cervical lymph nodes are present. Lung apices demonstrate no acute abnormality. There is mild calcification of the carotid bifurcations. IMPRESSION: CT HEAD: 1. Negative for acute traumatic intracranial abnormality. CT CERVICAL SPINE: 1. Negative for acute fracture or traumatic subluxation. 2. Rather pronounced multilevel cervical spondylosis. This includes disc space narrowing, endplate osteophyte formation and asymmetric hypertrophic facet arthropathy. There are various degrees of canal and foraminal narrowing most severe at C4-C5, C5-C6 and C6-C7 levels. 3. Lucency through the pedicles at the C6 level may be developmental or owing to prior traumatic changes Dictated by: Dictated on workstation # [id number]
--- NOTE | 2018-06-18 13:21 | Diagnostic Imaging Report ---
PROCEDURE: CT chest without contrast. TECHNIQUE: Multiple contiguous axial images were obtained through the chest without the use of intravenous contrast. INDICATION: Trauma, status post fall backwards with right upper posterior chest and back pain. COMPARISON: None FINDINGS: Given limitations of noncontrast imaging, a few mildly prominent mediastinal lymph nodes. A precarinal lymph node is borderline measuring 18 x 12 mm. There are a few scattered axillary lymph nodes. Heart size is enlarged with moderate severity coronary artery calcification. Dense mitral valvular calcification. No significant pericardial effusion. No appreciable mediastinal hematoma. Thoracic aortic contour unremarkable with minimal wall calcification. Small hiatal hernia present. No significant infiltrate or findings suggesting contusion. No pneumothorax. Trace right pleural effusion. Cholecystectomy clips in the right upper quadrant. No upper abdominal ascites or free air. Additional perhaps clip within the subcutaneous tissues of the anterior right abdominal wall. There is offset at the inferior body and tip of the scapula suggestive of mildly displaced acute fracture with associated edema/hematoma in this region. There is also presence of a relatively nondisplaced fracture of the posterolateral right seventh rib. Old, ununited left posterior ninth rib fracture. There is moderate loss of height at the T11 vertebral body. While indeterminate it appears to likely be nonacute. Multilevel thoracic spondylosis is present. Slightly accentuated kyphotic curvature. Prominent endplate spurring is noted particularly anteriorly and laterally. No high degree osseous spinal canal narrowing. IMPRESSION: 1. Comminuted mildly displaced fracture involving the inferior body and tip of the right scapula. 2. Relatively nondisplaced right lateral seventh rib fracture. 3. Trace right pleural effusion. Dictated by: Dictated on workstation # [id number]
[2018-06-18] MEDS ORDERED: HYDR-4226 PO (13:29)
[2018-06-18 13:54] VITALS: BP 186/87
== END 2018-06-18 13:54 | disposition home or self-care (01) ==
LOC: EDUNIT# 10:38 → ER 10:39
DX: S22.31XA Fracture of one rib, right side, initial encounter for closed fracture (principal); S42.111A Displaced fracture of body of scapula, right shoulder, initial encounter for closed fracture; E11.9 Type 2 diabetes mellitus without complications; R40.2142 Coma scale, eyes open, spontaneous, at arrival to emergency department; R40.2252 Coma scale, best verbal response, oriented, at arrival to emergency department; R40.2362 Coma scale, best motor response, obeys commands, at arrival to emergency department; Z88.8 Allergy status to other drugs, medicaments and biological substances; Z79.84 Long term (current) use of oral hypoglycemic drugs; Z90.710 Acquired absence of both cervix and uterus; W08.XXXA Fall from other furniture, initial encounter; Y92.009 Unspecified place in unspecified non-institutional (private) residence as the place of occurrence of the external cause
CPT/HCPCS: 70450; 71250; 72125; 94664

== ENCOUNTER → 2018-10-30 | Outpatient (CLI) | payer MEDICARE ==
[~2018-10-30] MED LIST changes: +CLOP75TA28; +HYDR-4226 PO; +METR-145 PO; -METR-197 PO
--- NOTE | 2018-10-31 11:47 | Diagnostic Imaging Report ---
INDICATION: Thyroid nodule. Patient was administered 250 ?Ci of I-123 orally and a 4 hour and 24-hour thyroid uptake was performed. Thyroid scan was also performed. 24 hour thyroid uptake is approximately 10%. This is at the lower limits of normal. Normal value is 10-30%. Thyroid scan demonstrates fairly homogeneous uptake throughout both lobes of the thyroid gland. No definite hot or cold nodules are seen. IMPRESSION: 1. Lower limits of normal 24-hour thyroid uptake of 10%. No hot or cold nodules are identified. Dictated by: Dictated on workstation # [id number]
== END ==
LOC: CARD 10:36
PROVIDERS: ATTEND Internal Medicine
DX: E04.1 Nontoxic single thyroid nodule (principal)
CPT/HCPCS: 78014

== ENCOUNTER 2019-11-29 10:04 | Emergency (ER) | payer MEDICARE ==
[~2019-11-29] VITALS: Ht 154.9 cm; Wt 68.9 kg
[2019-11-29 10:41] LABS: BASOPHILS % (AUTO) 0 % (0-10); EOSINOPHILS # (AUTO) 0.1 10^3/uL (0.0-0.3); EOSINOPHILS % (AUTO) 2 % (0-10); HEMATOCRIT 34 % (35-52); LYMPHOCYTES # (AUTO) 1.8 X 10^3 (1.0-4.0); LYMPHOCYTES % (AUTO) 30 % (12-44); MEAN CORPUSCULAR HEMOGLOBIN 28 PG (25-34); MEAN CORPUSCULAR HGB CONC 33 G/DL (32-36); MEAN CORPUSCULAR VOLUME 85 FL (80-99); MEAN PLATELET VOLUME 10.3 FL (7.4-10.4); MONOCYTES # (AUTO) 0.5 X 10^3 (0.0-1.0); MONOCYTES % (AUTO) 9 % (0-12); NEUTROPHILS # (AUTO) 3.6 X 10^3 (1.8-7.8); NEUTROPHILS % (AUTO) 59 % (42-75); PLATELET COUNT 200 10^3/uL (130-400); RED CELL DISTRIBUTION WIDTH 14.3 % (10.0-14.5); WHITE BLOOD COUNT 6.2 10^3/uL (4.3-11.0)
[2019-11-29 10:53] LABS: ALBUMIN 4.3 GM/DL (3.2-4.5)
[2019-11-29 10:55] LABS: CALCIUM 9.5 MG/DL (8.5-10.1); PROTHROMBIN TIME PATIENT 13.7 SEC (12.2-14.7)
[2019-11-29 10:56] LABS: TOTAL PROTEIN 7.7 GM/DL (6.4-8.2)
--- NOTE | 2019-11-29 10:57 | ED GI ---
General Chief Complaint: Rect Problems Stated Complaint: RECTAL BLEEDING Nursing Triage Note: Pt c/o rectal bleeding for four days. Pt reports soaking a pad within five minutes after a bowel movement this morning. Pt c/o constipation and LLQ tenderness. Pt takes aspirin and plavix. Pt reports having blood work last week and was "slightly anemic" then. Sepsis Screen: No Definite Risk Source of Information: Patient Exam Limitations: No Limitations History of Present Illness Date Seen by Provider: November 29, 2019 Time Seen by Provider: 10:51 Initial Comments ER with rectal bleeding off and on for several days. She believes this is related to hemorrhoids. Today after a bowel movement she had some heavier rectal bleeding. She put a pad on and then soaked that pad with blood. Has also been having some LLQ abdominal pain. Timing/Duration: Getting Worse, Intermittent Severity/Quality: Moderate Radiation: No Radiation Activities at Onset: None Allergies and Home Medications Allergies Coded Allergies: prochlorperazine (Unverified Allergy, Intermediate, 05/23/08) Home Medications Colestipol Hcl 1 Gm Tablet, 1 GM PO BID, (Reported) Hydrocodone/Acetaminophen 1 Each Tablet, 1 EACH PO Q6H PRN for PAIN-MODERATE Prescribed by: ISRAEL JACOME on 06/18/18 1329 Hyoscyamine Sulfate 0.125 Mg Tab.rapdis, 0.125 MG PO Q6H PRN for SPASMS Prescribed by: ALIS ENCINAS on 10/13/162318 Metformin Hcl 500 Mg Tablet, 1 EACH PO DAILY, (Reported) Metronidazole 500 Mg Tablet, 500 MG PO BID Prescribed by: ALIS ENCINAS on 10/13/162318 Ondansetron 8 Mg Tab.rapdis, 8 MG PO Q6H PRN for NAUSEA/VOMITING-1ST LINE Prescribed by: ALIS ENCINAS on 10/13/162318 Sitagliptin Phosphate 100 Mg Tablet, 1 EACH PO DAILY, (Reported) Patient Home Medication List Home Medication List Reviewed: Yes Review of Systems Review of Systems Constitutional: see HPI; No chills, No fever EENTM: No Symptoms Reported Respiratory: No Symptoms Reported Cardiovascular: No Symptoms Reported Gastrointestinal: See HPI, Abdominal Pain Genitourinary: No Symptoms Reported Musculoskeletal: no symptoms reported Skin: no symptoms reported Psychiatric/Neurological: No Symptoms Reported Endocrine: No Symptoms Reported Hematologic/Lymphatic: No Symptoms Reported Past Njnzkqs-Yjehwl-Srohds Hx Patient Social History Alcohol Use: Denies Use Recreational Drug Use: No 2nd Hand Smoke Exposure: No Recent Foreign Travel: No Contact w/Someone Who Travel: No Recent Infectious Disease Expo: No Recent Hopitalizations: No Immunizations Up To Date Date of Pneumonia Vaccine: Apr 09, 2011 Past Medical History Surgeries: Yes Gallbladder, Hysterectomy Respiratory: No Cardiac: No Neurological: Yes Stroke Genitourinary: No Gastrointestinal: No Musculoskeletal: No Endocrine: Yes Diabetes, Non-Insulin dep HEENT: Yes Macular Degeneration Loss of Vision: Denies Cancer: No Psychosocial: No Family Medical History No Pertinent Family Hx Physical Exam Vital Signs Vital Signs - First Documented 11/29/19 10:05 Temp 36.5 Pulse 78 Resp 20 B/P (MAP) 178/72 (107) Pulse Ox 99 O2 Delivery Room Air Capillary Refill : Less Than 3 Seconds Height/Weight/BMI Height: 5'1.00" Weight: 157lbs. 0.0oz. [id number]; 28.00 BMI Method:Stated General Appearance: WD/WN, no apparent distress HEENT: PERRL/EOMI, normal ENT inspection Neck: non-tender, full range of motion Respiratory: no respiratory distress, no accessory muscle use Gastrointestinal: normal bowel sounds, non tender, soft Rectal: hemorrhoids, mass (appears to be a chronically prolapsed internal hemorrhoid with some ulceration from drying/exposure. Last colonoscopy was with Dr. archer from gastroenterology one year ago and told she didn't need any more), tenderness Extremities: normal range of motion, non-tender Neurologic/Psychiatric: alert, normal mood/affect, oriented x 3 Skin: normal color, warm/dry Progress/Results/Core Measures Results/Orders Lab Results Laboratory Tests Test 11/29/19 10:25 Range/Units White Blood Count 6.2 4.3-11.0 10^3/uL Red Blood Count 3.96 L 4.35-5.85 10^6/uL Hemoglobin 11.0 L 11.5-16.0 G/DL Hematocrit 34 L 35-52 % Mean Corpuscular Volume 85 80-99 FL Mean Corpuscular Hemoglobin 28 25-34 PG Mean Corpuscular Hemoglobin Concent 33 32-36 G/DL Red Cell Distribution Width 14.3 10.0-14.5 % Platelet Count 200 130-400 10^3/uL Mean Platelet Volume 10.3 7.4-10.4 FL Neutrophils (%) (Auto) 59 42-75 % Lymphocytes (%) (Auto) 30 12-44 % Monocytes (%) (Auto) 9 0-12 % Eosinophils (%) (Auto) 2 0-10 % Basophils (%) (Auto) 0 0-10 % Neutrophils # (Auto) 3.6 1.8-7.8 X 10^3 Lymphocytes # (Auto) 1.8 1.0-4.0 X 10^3 Monocytes # (Auto) 0.5 0.0-1.0 X 10^3 Eosinophils # (Auto) 0.1 0.0-0.3 10^3/uL Basophils # (Auto) 0.0 0.0-0.1 10^3/uL Prothrombin Time 13.7 12.2-14.7 SEC INR Comment 1.0 0.8-1.4 Activated Partial Thromboplast Time 42 H 24-35 SEC Sodium Level 139 135-145 MMOL/L Potassium Level 4.0 3.6-5.0 MMOL/L Chloride Level 105 98-107 MMOL/L Carbon Dioxide Level 25 21-32 MMOL/L Anion Gap 9 5-14 MMOL/L Blood Urea Nitrogen 19 H 7-18 MG/DL Creatinine 1.12 0.60-1.30 MG/DL Estimat Glomerular Filtration Rate 47 BUN/Creatinine Ratio 17 Glucose Level 192 H 70-105 MG/DL Calcium Level 9.5 8.5-10.1 MG/DL Corrected Calcium 9.3 8.5-10.1 MG/DL Total Bilirubin 0.5 0.1-1.0 MG/DL Aspartate Amino Transf (AST/SGOT) 26 5-34 U/L Alanine Aminotransferase (ALT/SGPT) 21 0-55 U/L Alkaline Phosphatase 77 40-136 U/L Total Protein 7.7 6.4-8.2 GM/DL Albumin 4.3 3.2-4.5 GM/DL My Orders Orders - ISREAL JACOME APRN Ct Abdomen/Pelvis Wo (11/29/19 11:15) Vital Signs/I&O 11/29/19 10:05 Temp 36.5 Pulse 78 Resp 20 B/P (MAP) 178/72 (107) Pulse Ox 99 O2 Delivery Room Air Blood Pressure Mean: 107 Diagnostic Imaging Diagonstic Imaging: CT Comments NAME: DOROTHY KWONG [facility] REC#: [id number] PT STATUS: REG ER : 1940 PHYSICIAN: ISRAEL JACOME APRN ADMIT DATE: 11/29/19/ER Draft Date of Exam:11/29/19 CT ABDOMEN/PELVIS WO CT ABDOMEN/PELVIS WO TECHNIQUE: Unenhanced CT imaging of the abdomen and pelvis was performed. 2-D reformats are created and submitted for interpretation. Automatic exposure controls were utilized to optimize patient dose. INDICATION: Rectal bleeding. COMPARISON: CT abdomen and pelvis from 10/13/2016 FINDINGS: Evaluation of the abdominal viscera is mildly limited without contrast. Lower chest: The lung bases are clear. No pericardial or pleural effusion. Peritoneum: No free intraperitoneal air or fluid. Liver and biliary system: Unenhanced liver is normal. Cholecystectomy. No pathologic biliary duct dilatation. Spleen and Pancreas: Spleen is normal. Diffuse atrophy of the pancreas is unchanged. Adrenals: Normal. tract: No renal or ureteral calculi. No obstructive uropathy. Urinary bladder is decompressed, limiting assessment. Hysterectomy has been performed. No adnexal mass. GI tract: Small sliding-type hiatal hernia is unchanged. Stomach is otherwise decompressed and suboptimally evaluated. No bowel obstruction. No pericolonic inflammatory changes. Sigmoid colon diverticulosis without diverticulitis. No perirectal abscess. Vasculature and Lymph nodes: Normal caliber aorta has moderate atherosclerotic plaquing. No abdominal or pelvic lymphadenopathy. Musculoskeletal: No concerning osseous lesion. IMPRESSION: 1. Sigmoid colon diverticulosis without diverticulitis. No active colitis or perirectal inflammation. 2. Small sliding hiatal hernia is unchanged. Dictated on workstation # [id number] Dict: 11/29/19 1149 Trans: 11/29/19 1152 [facility] [id number] Interpreted by: ANTOINETTE LAN MD Electronically signed by: Departure Impression Primary Impression: Prolapsed hemorrhoids Disposition: 01 HOME, SELF-CARE Condition: Stable Departure-Patient Inst. Decision time for Depature: 12:02 Referrals: FLORIAN MELENDEZ BRETT D DO KIDO, TAKAAKI MD SULLIVAN, WILLIAM J DO (PCP/Family) Primary Care Physician Patient Instructions: Hemorrhoids Add. Discharge Instructions: 1. Return to ER for any concerns 2. Follow up with one of the surgeons next week. 3. Apply the topical cream as directed. Increase your fiber intake to 20-30 g per day and water intake to 1.5 L per day.: The surgeons listed as these surgical treatment if bleeding persists. All discharge instructions reviewed with patient and/or family. Voiced understanding. Scripts Hydrocortisone Acetate (Anusol-Hc) 25 Mg Supp.rect 25 MG RC BID, #10 SUPP.RECT Prov: ISRAEL JACOME APRN 11/29/19 ISRAEL JACOME APRN November 29, 2019 10:57
[2019-11-29 10:58] LABS: BILIRUBIN,TOTAL 0.5 MG/DL (0.1-1.0)
[2019-11-29 11:00] LABS: CREATININE SERUM 1.12 MG/DL (0.60-1.30)
[2019-11-29] MEDS ORDERED: HOLD METFORMIN - RECEIVED CONTRAST 20 ML VIAL IV SCH (11:00)
[2019-11-29] MEDS ORDERED: IOHEXOL 350 MG/ML 100 ML (OMNIPAQUE 350) VIAL IV ONE (11:00)
[2019-11-29] MEDS ORDERED: CATHETER FLUSH 10 ML SYR IV PRN (11:00)
[2019-11-29] MEDS ORDERED: NS 100 ML (IVPB) BAG IV ONE (11:00)
--- NOTE | 2019-11-29 11:13 | NUR ---
Report given to DOMINIQUE Suarez to assume care of pt at this time.
--- NOTE | 2019-11-29 11:52 | Diagnostic Imaging Report ---
CT ABDOMEN/PELVIS WO TECHNIQUE: Unenhanced CT imaging of the abdomen and pelvis was performed. 2-D reformats are created and submitted for interpretation. Automatic exposure controls were utilized to optimize patient dose. INDICATION: Rectal bleeding. COMPARISON: CT abdomen and pelvis from 10/13/2016 FINDINGS: Evaluation of the abdominal viscera is mildly limited without contrast. Lower chest: The lung bases are clear. No pericardial or pleural effusion. Peritoneum: No free intraperitoneal air or fluid. Liver and biliary system: Unenhanced liver is normal. Cholecystectomy. No pathologic biliary duct dilatation. Spleen and Pancreas: Spleen is normal. Diffuse atrophy of the pancreas is unchanged. Adrenals: Normal. tract: No renal or ureteral calculi. No obstructive uropathy. Urinary bladder is decompressed, limiting assessment. Hysterectomy has been performed. No adnexal mass. GI tract: Small sliding-type hiatal hernia is unchanged. Stomach is otherwise decompressed and suboptimally evaluated. No bowel obstruction. No pericolonic inflammatory changes. Sigmoid colon diverticulosis without diverticulitis. No perirectal abscess. Vasculature and Lymph nodes: Normal caliber aorta has moderate atherosclerotic plaquing. No abdominal or pelvic lymphadenopathy. Musculoskeletal: No concerning osseous lesion. IMPRESSION: 1. Sigmoid colon diverticulosis without diverticulitis. No active colitis or perirectal inflammation. 2. Small sliding hiatal hernia is unchanged. Dictated by: Dictated on workstation # [id number]
[2019-11-29] MEDS ORDERED: HYDR25SU28 RC (12:06)
[2019-11-29 12:19] VITALS: BP 153/53
== END 2019-11-29 12:19 | disposition home or self-care (01) ==
LOC: EDUNIT# 10:04 → ER 10:05
DX: K64.8 Other hemorrhoids (principal); E11.9 Type 2 diabetes mellitus without complications; Z79.82 Long term (current) use of aspirin; Z79.02 Long term (current) use of antithrombotics/antiplatelets; Z88.8 Allergy status to other drugs, medicaments and biological substances; Z79.84 Long term (current) use of oral hypoglycemic drugs; Z86.73 Personal history of transient ischemic attack (TIA), and cerebral infarction without residual deficits; Z90.710 Acquired absence of both cervix and uterus
CPT/HCPCS: 36415; 74176; 80053; 85025; 85610; 85730

== ENCOUNTER 2020-03-30 13:30 | Outpatient (CLI) | payer MEDICARE ==
[~2020-03-30] VITALS: Ht 154.9 cm; Wt 70.0 kg
[~2020-03-30 13:30] MED LIST changes: -CLOP75TA28; +CLOP75TA28 PO; +HYDR25SU28 RC
[2020-03-30] MEDS ORDERED: CYAN100088 PO (13:56)
[2020-03-30] MEDS ORDERED: GABA-486 PO (13:56)
[2020-03-30] MEDS ORDERED: ATOR20TA66 PO (13:56)
[2020-03-30] MEDS ORDERED: LOSA1TAB23 PO (13:56)
[2020-03-30] MEDS ORDERED: LACT1TAB9 PO (13:56)
[2020-03-30] MEDS ORDERED: MV-M1TAB38 PO (13:56)
[2020-03-30] MEDS ORDERED: CLC600T PO (13:56)
[2020-03-30] MEDS ORDERED: ATEN50TA PO (13:56)
[2020-03-30] MEDS ORDERED: CHOL10002 PO (13:56)
[2020-03-30] MEDS ORDERED: ASPI-999 PO (13:56)
[2020-03-30] MEDS ORDERED: SITA100T12 PO (13:56)
[2020-03-30] MEDS ORDERED: MV-M1TAB57 PO (13:56)
[2020-03-30] MEDS ORDERED: METF-397 PO (13:56)
[2020-03-30] MEDS ORDERED: OMEP40CA27 PO (13:56)
== END 2020-03-30 14:00 | disposition home or self-care (01) ==
LOC: PREOP 13:30
PROVIDERS: ATTEND Surgery
DX: Z01.818 Encounter for other preprocedural examination (principal)

== ENCOUNTER 2020-04-03 10:26 | Day surgery (SDC) | payer MEDICARE ==
[~2020-04-03] VITALS: Ht 154.9 cm; Wt 29.2 kg
[~2020-04-03 10:26] MED LIST changes: +ASPI-999 PO; +ATEN50TA PO; +ATOR20TA66 PO; +CHOL10002 PO; +CLC600T PO; +CYAN100088 PO; +GABA-486 PO; +LACT1TAB9 PO; +LOSA1TAB23 PO; +METF-397 PO; +MV-M1TAB38 PO; +MV-M1TAB57 PO; +OMEP40CA27 PO; +SITA100T12 PO
[2020-04-03] MEDS ORDERED: LACTATED RINGERS 1,000 ML IV ONE (10:51)
[2020-04-03] MEDS ORDERED: LACTATED RINGERS 1,000 ML IV STA (11:21)
[2020-04-03 11:34] LABS: HEMOGLOBIN 9.7 g/dL (11.5-16.0); MEAN PLATELET VOLUME 10.7 fL (9.0-12.2); WHITE BLOOD COUNT 6.8 10^3/uL (4.3-11.0)
[2020-04-03 11:45] VITALS: BP 170/58
--- NOTE | 2020-04-03 12:19 | Progress Note-Pre Operative ---
Pre-Operative Progress Note H&P Reviewed The H&P was reviewed, patient examined and no changes noted. Time Seen by Provider: 12:16 Date H&P Reviewed: Apr 03, 2020 Time H&P Reviewed: 12:16 Pre-Operative Diagnosis: Rectal Bleed FLORIAN MELENDEZ DO Apr 03, 2020 12:19
[2020-04-03] MEDS ORDERED: PROPOFOL INJECTION 50 ML IV ONE (12:24)
[2020-04-03 12:50] VITALS: BP 103/51
[2020-04-03 12:55] VITALS: BP 104/52
--- NOTE | 2020-04-03 12:56 | Endoscopy Discharge Instruct ---
Endo Procedure/Findings Findings 1.: Polyp 2.: Diverticulosis 3.: Internal Hemorrhoids Discharge Instructions - Activity: You might feel a little sleepy until tomorrow. This is due to the medicine you received to relax you. Until tomorrow, you should: NOT drive a car, operate machinery or power tools. NOT drink any alcoholic beverages. NOT make any important decisions or sign importortant papers. Do not return to work until tomorrow, unless otherwise instructed. Resume previous activities tomorrow. Diet: Start by taking liquids. If you tolerate liquids, advance to solid food. 1.: Colonscopy in 10 years Notify Physician - If you experience excessive bleeding, unusual abdominal pain, fever, or chest pain, contact your doctor immediately. FLORIAN MELENDEZ DO Apr 03, 2020 12:56
--- NOTE | 2020-04-03 12:56 | Progress Note-Post Operative ---
Post-Operative Progess Note Surgeon (s)/Sales Representative Publications (s) Surgeon FLORIAN MELENDEZ DO Sales Representative Publications: none Pre-Operative Diagnosis Rectal Bleed Post-Operative Diagnosis Polyp Diverticula int hemorrhoids Procedure & Operative Findings Date of Procedure 04/03/20 Procedure Performed/Findings Colon with hot bx Anesthesia Type IV sedation by WAFFLE MACHINE OPERATOR Estimated Blood Loss Estimated blood loss (mL): scant Specimens/Packing Specimens Removed asc colon polyp FLORIAN MELENDEZ DO Apr 03, 2020 12:56
[2020-04-03 13:00] VITALS: BP 121/57
[2020-04-03 13:05] VITALS: BP 121/57
--- NOTE | 2020-04-03 13:22 | Anesthesia-General Post-Op ---
MAC Patient Condition Mental Status/LOC: Same as Preop Cardiovascular: Satisfactory Nausea/Vomiting: Absent Respiratory: Satisfactory Pain: Controlled Complications: Absent Post Op Complications Complications None Follow Up Care/Instructions Patient Instructions None needed. Anesthesiology Discharge Order Discharge Order Patient is doing well, no complaints, stable vital signs, no apparent adverse anesthesia problems. No complications reported per nursing. ROX BURRIS CRNA Apr 03, 2020 13:22
[2020-04-03 13:29] VITALS: BP 105/60
--- NOTE | 2020-04-03 18:44 | OPERATIVE REPORT ---
DATE OF SERVICE: PREOPERATIVE DIAGNOSIS: Rectal bleed. POSTOPERATIVE DIAGNOSES: Rectal bleed, colon polyps, diverticula, internal hemorrhoids. PROCEDURE: Colonoscopy with hot biopsy. SURGEON: Jose Chou DO HOME CARE MANAGER: None. ANESTHESIA: IV sedation by the TIMBER SPOTTER. SPECIMEN: Ascending colon polyp. BLOOD LOSS: Scant. FLUIDS: Per anesthesia. POSTOPERATIVE CONDITION: Stable. INDICATION FOR PROCEDURE: The patient is an 79-year-old female who had some rectal bleeding, needs a workup. FINDINGS: The patient had diverticula throughout the colon on the right and left side. She also had a small polyp in the ascending colon and then she had some internal hemorrhoids. Internal hemorrhoids most likely cause of her bleeding. PROCEDURE NOTE: After informed consent was obtained, the patient was brought to the endoscopy suite, placed in bed in left lateral decubitus position. She was administered IV sedation by the TIMBER SPOTTER who then monitored her vitals the entire time, heart rate, blood pressure and pulse ox and the scope was inserted, pushed all the way into about 140 cm, able to get to the cecum, took a picture of appendiceal orifice, noted the ileocecal valve and then slowly withdrew the scope insufflating to look circumferentially at the meeks, starting in the cecum, up the ascending colon. In the ascending colon, saw small flat polyp, I elected to do a hot biopsy of this to make sure there was no bleeding as the patient does take Plavix. Able to take this in 2 bites and there was no bleeding when we were done of the second bite. This was then sent to pathology, then continued to go up the ascending colon to the hepatic flexure, then down the transverse colon, the splenic flexure, into the descending colon down to the sigmoid and finally into the rectum, retroflexed in rectal vault, saw some internal hemorrhoids. This is most likely cause of her bleeding. She had some small diverticula in the ascending colon as well as a lot of diverticula in the descending and sigmoid colon. Scope was removed. The patient tolerated the procedure. She was recovered in endoscopy suite. Job ID: [id number] DocumentID: [id number] Dictated Date: 04/03/2020 12:59:39 Sock Liner Date: 04/03/2020 18:43:17 Dictated By: JOSE CHOU DO MTDD
== END 2020-04-03 13:35 | disposition home or self-care (01) ==
LOC: ENDO 10:26
PROVIDERS: ATTEND Surgery
DX: D12.2 Benign neoplasm of ascending colon (principal); K64.8 Other hemorrhoids; K57.30 Diverticulosis of large intestine without perforation or abscess without bleeding; E11.9 Type 2 diabetes mellitus without complications; I10 Essential (primary) hypertension; M19.91 Primary osteoarthritis, unspecified site; E78.5 Hyperlipidemia, unspecified; G47.33 Obstructive sleep apnea (adult) (pediatric); I69.354 Hemiplegia and hemiparesis following cerebral infarction affecting left non-dominant side; K21.9 Gastro-esophageal reflux disease without esophagitis; Z99.89 Dependence on other enabling machines and devices; Z79.82 Long term (current) use of aspirin; Z79.84 Long term (current) use of oral hypoglycemic drugs; Z79.899 Other long term (current) drug therapy; Z88.8 Allergy status to other drugs, medicaments and biological substances
CPT/HCPCS: 36415; 82962; 85027

== ENCOUNTER 2021-05-08 09:10 | Emergency (ER) | payer MEDICARE ==
[~2021-05-08] VITALS: Ht 154.9 cm; Wt 66.3 kg
[~2021-05-08 09:10] MED LIST changes: +CALC600T91 PO; +CHOL-34 PO; -CHOL10002 PO; -CIPR500T4 PO; +CIPR500T5 PO; -CLC600T PO; -OMEP40CA27 PO; +OMEP40CA6 PO
--- NOTE | 2021-05-08 09:41 | ED Head Injury ---
General Chief Complaint: Trauma-Non Activation Stated Complaint: FALL/HEAD INJURY Source: patient Exam Limitations: no limitations History of Present Illness Date Seen by Provider: May 08, 2021 Time Seen by Provider: 09:26 Initial Comments Patient is an 81-year-old female who presents to the emergency department today with a chief complaint of head injury status post 2 falls in the last 48 hours, left-sided chest pain after her fall this morning and left hip pain. Patient relates that she had a mechanical slip and fall on some wet leaves and a walnut on evening when taking out the trash. She did not have a loss of consciousness. She states that she was doing well through yesterday with no symptoms and then today when she was out in the garage became dizzy and lightheaded and fell backwards again striking her head on the concrete. Again no loss of consciousness. Patient is chronically anticoagulated on Plavix. She states she was a little bit nauseous this morning. She suffered an injury to her left hip with subsequent hematoma. Denies any new severe pain numbness tingling or weakness in her left leg. She is scheduled to have an MRI of her lumbar spine for sciatica symptoms that have been proceeding these events. She also complains of some left lateral chest pain and a little discomfort with taking deep breaths. No shortness of breath. No recent illnesses such as fevers, chills, URI symptoms. She is on antibiotics for presumptive urinary tract infection discovered at her primary care physician's office last week. 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 All other review of systems reviewed and negative except as stated. Occurred: just prior to arrival, other (initial fall 2 days ago) Severity: mild Location: occipital Method of Injury: fell Loss of Consciousness: no loss of consciousness Associated Systoms: Nausea/Vomiting (mild nausea this morning (none now)) Allergies and Home Medications Allergies Coded Allergies: prochlorperazine (Unverified Allergy, Intermediate, 05/23/08) Patient Home Medication List Home Medication List Reviewed: Yes Aspirin (Aspirin) 81 Mg Tab.chew, 81 MG PO DAILY, (Reported) Entered as Reported by: VIKKI CSAH on 03/30/20 6264 Atenolol (Atenolol) 50 Mg Tablet, 50 MG PO DAILY, (Reported) Entered as Reported by: VIKKI CASH on 03/30/20 1356 Atorvastatin Calcium (Atorvastatin Calcium) 20 Mg Tablet, 20 MG PO DAILY, (Reported) Entered as Reported by: VIKKI CASH on 03/30/20 135 Calcium Carbonate (Calcium) 600 Mg Tablet, 600 MG PO DAILY, (Reported) Entered as Reported by: VIKKI CASH on 03/30/20 135 Cholecalciferol (Vitamin D3) (Vitamin D3) 25 Mcg Tablet, 25 MCG PO DAILY, (Reported) Entered as Reported by: VIKKI ACSH on 03/30/20 135 Clopidogrel Bisulfate (Clopidogrel) 75 Mg Tablet, 75 MG PO DAILY, (Reported) Entered as Reported by: KENYA REDDY on 06/18/18 1152 Cyanocobalamin (Vitamin B-12) (B-12) 1,000 Mcg Tablet, 1,000 MCG PO DAILY, (Reported) Entered as Reported by: VIKKI CASH on 03/30/20 135 Gabapentin (Gabapentin) 100 Mg Capsule, 100 MG PO BID, (Reported) Entered as Reported by: VIKKI CASH on 03/30/20 135 Lactobacillus Acidophilus (Acidophilus) 1 Each Tablet, 1 EACH PO DAILY, (Reporte d) Entered as Reported by: VIKKI CASH on 03/30/20 135 Losartan/Hydrochlorothiazide (Losartan-Hctz 100-25 mg Tab) 1 Each Tablet, 1 EACH PO DAILY, (Reported) Entered as Reported by: VIKKI CASH on 03/30/20 135 Metformin HCl (Metformin HCl) 500 Mg Tablet, 500 MG PO DAILY, (Reported) Entered as Reported by: VIKKI CASH on 03/30/20 135 Mv-Mn/FA/Vit K/Lycop/Lut/Zeaxa (Ocuvite Eye + Multi Tablet) 1 Each Tablet, 1 EACH PO DAILY, (Reported) Entered as Reported by: VIKKI CASH on 03/30/201355 Mv-Mn/Folic Acid/Calcium/Vit K (Women's 50 Plus Multivit Tab) 1 Each Tablet, 1 EACH PO DAILY, (Reported) Entered as Reported by: VIKKI CASH on 03/30/20 135 Omeprazole (Omeprazole) 40 Mg Capsule.dr, 40 MG PO DAILY, (Reported) Entered as Reported by: VIKKI CASH on 03/30/20 1356 Sitagliptin Phosphate (Januvia) 100 Mg Tablet, 100 MG PO DAILY, (Reported) Entered as Reported by: VIKKI CASH on 03/30/20 1356 Review of Systems Review of Systems Constitutional: see HPI Eyes: No Symptoms Reported Ears, Nose, Mouth, Throat: no symptoms reported Respiratory: other (left sided rib pain with deep breath) Cardiovascular: no symptoms reported Gastrointestinal: no symptoms reported Genitourinary: no symptoms reported Musculoskeletal: joint pain (low lseft sided hip pain; left sided chest pain) Skin: no symptoms reported Psychiatric/Neurological: No Symptoms Reported All Other Systems Reviewed Negative Unless Noted: Yes Past Wbcyzda-Zfbdjo-Ykoars Hx Seasonal Allergies Seasonal Allergies: Yes Past Medical History Surgeries: Yes (bilat CTR) Gallbladder, Hysterectomy Respiratory: Yes Sleep Apnea Currently Using CPAP: Yes Cardiac: Yes Hypertension Neurological: Yes (2018 stroke, L side effected) Stroke Genitourinary: No Gastrointestinal: Yes (rectal bleeding) Musculoskeletal: No Endocrine: Yes Diabetes, Non-Insulin dep HEENT: Yes Macular Degeneration Loss of Vision: Denies Cancer: No Psychosocial: No Integumentary: No Blood Disorders: No Family Medical History No Pertinent Family Hx Physical Exam Vital Signs Vital Signs - First Documented 05/08/21 09:30 Temp 36.3 Pulse 67 Resp 18 B/P (MAP) 177/73 (107) Pulse Ox 98 O2 Delivery Room Air Capillary Refill : Height, Weight, BMI Height: 5'1.00" Weight: 157lbs. 0.0oz. 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 and slight EOM palsey (due to prior stroke); right pupil briskly reactive and EOMI) Neck: supple Cardiovascular: regular rate, rhythm Respiratory: lungs clear, normal breath sounds, no respiratory distress, no accessory muscle use, other (no chest wall tenderness) Gastrointestinal: normal bowel sounds, non tender, soft Extremities: normal range of motion, no pedal edema, other (large hematoma low on left hip - no overlying erythema or ecchymoses; moderately tender to palpation) Psychiatric: alert, oriented x 3 Crainal Nerves: normal hearing, normal speech, abnormal eye position ((left eye abnormal due to prior stoke)) Motor/Sensory: no motor deficit, no sensory deficit Skin: normal color, warm/dry Progress/Results/Core Measures Results/Orders Lab Results Laboratory Tests Test 05/08/21 09:49 Range/Units White Blood Count 7.2 4.3-11.0 10^3/uL Red Blood Count 3.90 3.80-5.11 10^6/uL Hemoglobin 8.2 L 11.5-16.0 g/dL Hematocrit 28 L 35-52 % Mean Corpuscular Volume 71 L 80-99 fL Mean Corpuscular Hemoglobin 21 L 25-34 pg Mean Corpuscular Hemoglobin Concent 30 L 32-36 g/dL Red Cell Distribution Width 18.8 H 10.0-14.5 % Platelet Count 220 130-400 10^3/uL Mean Platelet Volume 10.8 9.0-12.2 fL Immature Granulocyte % (Auto) 0 % Neutrophils (%) (Auto) 70 42-75 % Lymphocytes (%) (Auto) 15 12-44 % Monocytes (%) (Auto) 10 0-12 % Eosinophils (%) (Auto) 5 0-10 % Basophils (%) (Auto) 1 0-10 % Neutrophils # (Auto) 5.0 1.8-7.8 10^3/uL Lymphocytes # (Auto) 1.1 1.0-4.0 10^3/uL Monocytes # (Auto) 0.7 0.0-1.0 10^3/uL Eosinophils # (Auto) 0.3 0.0-0.3 10^3/uL Basophils # (Auto) 0.0 0.0-0.1 10^3/uL Immature Granulocyte # (Auto) 0.0 0.0-0.1 10^3/uL Prothrombin Time 15.1 H 12.2-14.7 SEC INR Comment 1.1 0.8-1.4 Activated Partial Thromboplast Time 41 H 24-35 SEC Sodium Level 134 L 135-145 MMOL/L Potassium Level 4.9 3.6-5.0 MMOL/L Chloride Level 105 98-107 MMOL/L Carbon Dioxide Level 19 L 21-32 MMOL/L Anion Gap 10 5-14 MMOL/L Blood Urea Nitrogen 21 H 7-18 MG/DL Creatinine 1.42 H 0.60-1.30 MG/DL Estimat Glomerular Filtration Rate 35 BUN/Creatinine Ratio 15 Glucose Level 170 H 70-105 MG/DL Calcium Level 9.1 8.5-10.1 MG/DL My Orders Orders - NEELAM FERRELL MD Ed Iv/Invasive Line Start (05/08/2134) Cbc With Automated Diff (05/08/21) Protime With Inr (05/08/21) Partial Thromboplastin Time (05/08/21) Basic Metabolic Panel (05/08/21) Chest 1 View, Ap/Pa Only (05/08/21) Pelvis With Left Hip 2-3 Views (05/08/21) Ct Head Wo (05/08/21) Vital Signs/I&O 05/08/21 Temp 36.3 Pulse 67 Resp 18 B/P (MAP) 177/73 (107) Pulse Ox 98 O2 Delivery Room Air Progress Progress Note #1: Time: 09:57 Progress Note Patient also complaining of a little dorsal wrist pain - states that she doesnt think she actually fell "on it" but was trying to maybe reach and grab to prevent hitting her head. SHe demonstrates good active ROM; a little tender over the dorsum of the carpal bones, but no swelling or ecchymoses noted. good chief quality officer (albeit just a little less secondary to some minor discomfort). Progress Note #2: Time: 11:39 Progress Note Discussion with patient and patient's family members regarding findings on labs and x-rays and CT. She has no evidence of intracranial abnormality on CT, her x-rays are normal. She is quite anemic on CBC. I have advised her to follow-up with her primary care physician. She did asked me what she should do about her "dizziness". She states it seems to be much worse with position changes. She declines any new medications for dizziness and I advised her to be very careful with position changes especially going from lying to sitting and sitting to standing. I have advised her that she likely has mild concussion, she needs to take 2 Tylenol instead of 1 and she can do this every 6 hours. I have talked to her about using a lidocaine patch (she can use up to 3 at a time with a single 12hour free period). Patient is comfortable with this plan of care. All questions are sought and answered. Diagnostic Imaging Diagonstic Imaging: Xray, CT Comments [facility] [place], [place] NAME: DOROTHY KWONG [facility] REC#: [id number] PT STATUS: REG ER : 1940 PHYSICIAN: NEELAM FERRELL MD ADMIT DATE: 05/08/21/ER Draft Date of Exam:05/08/21 CT HEAD WO CLINICAL INDICATION: Patient status post fall on . Patient on Plavix. EXAM: Axial CT scan of the brain performed without IV contrast with sagittal and coronal reformatted images. Auto Exposure Controls were utilized during the CT exam to meet ALARA standards for radiation dose reduction. COMPARISON: CT scan of the head and cervical spine dated 06/18/2018.. FINDINGS: There is no evidence of acute cerebral infarct, intracranial hemorrhage, or gross mass effect. There is interval development of a small chronic infarct involving the right basal ganglia and right frontal lobe region. The brain parenchymal volume appears appropriate for patient's age. There are subtle patchy areas of low-attenuation white matter changes involving both cerebral hemispheres, likely representing chronic small vessel ischemic disease. There is normal irving-white matter distinction. There is no significant midline shift or herniation. There is no evidence of hydrocephalus. The basal cisterns are unremarkable. The skull, extracranial soft tissue, and orbits are unremarkable. The paranasal sinuses are unremarkable. Temporal bones show no significant abnormality. IMPRESSION: 1: There is no evidence of acute intracranial process. 2: Interval development of a small chronic infarct involving the right frontal lobe/basal ganglia region. 3: Age related brain parenchymal changes. Dictated on workstation # [id number] Dict: 05/08/21 1023 Trans: 05/08/21 1034 [facility] [id number] Interpreted by: VILMA LOONEY MD Electronically signed by: [facility] [place], [place] NAME: DOROTHY KWONG [facility] REC#: [id number] PT STATUS: REG ER : 1940 PHYSICIAN: NEELAM FERRELL MD ADMIT DATE: 05/08/21/ER Draft Date of Exam:05/08/21 PELVIS WITH LEFT HIP 2-3 VIEWS CLINICAL INDICATIONS: Patient status post fall on with left hip pain and hematoma. EXAM: X-ray of the pelvis and left hip, AP and frog-leg views. COMPARISONS: X-ray of the lumbar spine dated 03/15/2012. There is no acute fracture or dislocation of the left hip. The visualized portions of the right hip, pelvis and sacrum showed no acute fracture. There are mild to moderately hypertrophic spurs involving the right femoral head/neck junction region. There is mild degenerative spurs involving the bilateral acetabular regions. There is spurring and sclerosis of the sacroiliac joints bilaterally. IMPRESSION: 1: There is no acute fracture or dislocation. 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 Dictated on workstation # [id number] Dict: 05/08/21 1048 Trans: 05/08/21 1101 [facility] [id number] Interpreted by: VILMA LOONEY MD Electronically signed by: [facility] [place], [place] NAME: DOROTHY KWONG [facility] REC#: [id number] PT STATUS: REG ER : 1940 PHYSICIAN: NEELAM FERRELL MD ADMIT DATE: 05/08/21/ER Draft Date of Exam:05/08/21 CHEST 1 VIEW, AP/PA ONLY CLINICAL INDICATION: Patient is status post fall on . EXAM: Portable chest x-ray, upright view. COMPARISONS: Chest x-ray dated 10/28/2017. FINDINGS: Lungs/pleura: Lungs are clear. There is no pneumothorax. There is no pleural effusion. Mediastinum: Unremarkable. Pulmonary vasculature: Unremarkable. Heart: Cardiac silhouette size is upper limits of normal. Bones/extrathoracic soft tissue: There are degenerative spurs involving the thoracic spine. There is left curvature of the lower thoracic spine. There is interval development of old healed fracture involving the posterior aspect of the right T6 and T7 ribs. IMPRESSION: There is no radiographic evidence of acute cardiopulmonary process. Dictated on workstation # [id number] Dict: 05/08/21 1043 Trans: 05/08/21 1058 [id number] Interpreted by: VILMA LOONEY MD Electronically signed by: Departure Impression Primary Impression: Head injury Qualified Codes: S09.90XA - Unspecified injury of head, initial encounter Additional Impressions: Hematoma of left hip Qualified Codes: S70.02XA - Contusion of left hip, initial encounter Anemia Qualified Codes: D64.9 - Anemia, unspecified Disposition: HOME, SELF-CARE Condition: Stable (ERASED) Departure-Patient Inst. Decision time for Depature: 11:43 Referrals: HUSSEIN YOUNGER DO (PCP/Family) Primary Care Physician Patient Instructions: Minor Head Injury (DC) Add. Discharge Instructions: You can take 2 Extra Strength Tylenol every 6 hours with food as needed for pain. Drink plenty of fluids to stay well hydrated. Please follow up with Dr Younger on Monday regarding your falls. You may use up to THREE lidocaine patches at a time, You Can leave them in place for up to 12 hours at a time, leaving a patch free period of 12 hours. Come back to the Emergency Department for any severe headache, worsening balance issues, vomiting, or any other emergent, concerning symptoms. Scripts Lidocaine (Lidocaine 5% Patch) 1 Each Adh..patch 1 EACH TP Q12H PRN for Neuropathic pain MDD 2, #10 PATCH 2 patches max for 12 hours, then 12 hours patch-free period. Prov: NEELAM FERRELL MD 05/08/21 NEELAM FERRELL MD May 08, 2021 09:41
[2021-05-08 09:59] LABS: BASOPHILS % (AUTO) 1 % (0-10); EOSINOPHILS # (AUTO) 0.3 10^3/uL (0.0-0.3); EOSINOPHILS % (AUTO) 5 % (0-10); HEMATOCRIT 28 % (35-52); HEMOGLOBIN 8.2 g/dL (11.5-16.0); LYMPHOCYTES # (AUTO) 1.1 10^3/uL (1.0-4.0); LYMPHOCYTES % (AUTO) 15 % (12-44); MEAN CORPUSCULAR HEMOGLOBIN 21 pg (25-34); MEAN CORPUSCULAR HGB CONC 30 g/dL (32-36); MEAN CORPUSCULAR VOLUME 71 fL (80-99); MEAN PLATELET VOLUME 10.8 fL (9.0-12.2); MONOCYTES # (AUTO) 0.7 10^3/uL (0.0-1.0); MONOCYTES % (AUTO) 10 % (0-12); NEUTROPHILS % (AUTO) 70 % (42-75); PLATELET COUNT 220 10^3/uL (130-400); WHITE BLOOD COUNT 7.2 10^3/uL (4.3-11.0)
[2021-05-08 10:09] LABS: INR 1.1 (0.8-1.4); PROTHROMBIN TIME PATIENT 15.1 SEC (12.2-14.7)
[2021-05-08 10:10] LABS: POTASSIUM 4.9 MMOL/L (3.6-5.0)
[2021-05-08 10:11] LABS: CALCIUM 9.1 MG/DL (8.5-10.1)
[2021-05-08 10:15] LABS: CREATININE SERUM 1.42 MG/DL (0.60-1.30)
--- NOTE | 2021-05-08 10:35 | Diagnostic Imaging Report ---
CLINICAL INDICATION: Patient status post fall on . Patient on Plavix. EXAM: Axial CT scan of the brain performed without IV contrast with sagittal and coronal reformatted images. Auto Exposure Controls were utilized during the CT exam to meet ALARA standards for radiation dose reduction. COMPARISON: CT scan of the head and cervical spine dated 06/18/2018.. FINDINGS: There is no evidence of acute cerebral infarct, intracranial hemorrhage, or gross mass effect. There is interval development of a small chronic infarct involving the right basal ganglia and right frontal lobe region. The brain parenchymal volume appears appropriate for patient's age. There are subtle patchy areas of low-attenuation white matter changes involving both cerebral hemispheres, likely representing chronic small vessel ischemic disease. There is normal irving-white matter distinction. There is no significant midline shift or herniation. There is no evidence of hydrocephalus. The basal cisterns are unremarkable. The skull, extracranial soft tissue, and orbits are unremarkable. The paranasal sinuses are unremarkable. Temporal bones show no significant abnormality. IMPRESSION: 1: There is no evidence of acute intracranial process. 2: Interval development of a small chronic infarct involving the right frontal lobe/basal ganglia region. 3: Age related brain parenchymal changes. Dictated by: Dictated on workstation # [id number]
--- NOTE | 2021-05-08 11:00 | Diagnostic Imaging Report ---
CLINICAL INDICATION: Patient is status post fall on . EXAM: Portable chest x-ray, upright view. COMPARISONS: Chest x-ray dated 10/28/2017. FINDINGS: Lungs/pleura: Lungs are clear. There is no pneumothorax. There is no pleural effusion. Mediastinum: Unremarkable. Pulmonary vasculature: Unremarkable. Heart: Cardiac silhouette size is upper limits of normal. Bones/extrathoracic soft tissue: There are degenerative spurs involving the thoracic spine. There is left curvature of the lower thoracic spine. There is interval development of old healed fracture involving the posterior aspect of the right T6 and T7 ribs. IMPRESSION: There is no radiographic evidence of acute cardiopulmonary process. Dictated by: Dictated on workstation # [id number]
--- NOTE | 2021-05-08 11:01 | Diagnostic Imaging Report ---
CLINICAL INDICATIONS: Patient status post fall on with left hip pain and hematoma. EXAM: X-ray of the pelvis and left hip, AP and frog-leg views. COMPARISONS: X-ray of the lumbar spine dated 03/15/2012. There is no acute fracture or dislocation of the left hip. The visualized portions of the right hip, pelvis and sacrum showed no acute fracture. There are mild to moderately hypertrophic spurs involving the right femoral head/neck junction region. There is mild degenerative spurs involving the bilateral acetabular regions. There is spurring and sclerosis of the sacroiliac joints bilaterally. IMPRESSION: 1: There is no acute fracture or dislocation. 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 Dictated by: Dictated on workstation # [id number]
[2021-05-08] MEDS ORDERED: LIDO700A45 TP (11:53)
[2021-05-08 11:55] VITALS: BP 163/51
== END 2021-05-08 11:55 | disposition home or self-care (01) ==
LOC: EDUNIT# 09:10 → ER 09:12
DX: S70.02XA Contusion of left hip, initial encounter (principal); S09.90XA Unspecified injury of head, initial encounter; D64.9 Anemia, unspecified; G47.30 Sleep apnea, unspecified; I10 Essential (primary) hypertension; E11.9 Type 2 diabetes mellitus without complications; Z86.73 Personal history of transient ischemic attack (TIA), and cerebral infarction without residual deficits; Z79.84 Long term (current) use of oral hypoglycemic drugs; Z79.82 Long term (current) use of aspirin; Z79.899 Other long term (current) drug therapy; Z79.01 Long term (current) use of anticoagulants; W22.8XXA Striking against or struck by other objects, initial encounter
CPT/HCPCS: 36415; 70450; 71045; 80048; 85025; 85610; 85730

== ENCOUNTER → 2021-12-01 | Outpatient (CLI) | payer MEDICARE ==
[~2021-12-01] MED LIST changes: +LIDO700A45 TP
--- NOTE | 2021-12-01 14:21 | Diagnostic Imaging Report ---
Indication: Bilateral hip pain. Time of Exam: 1:08 PM Femoral acetabular alignment is normal bilaterally. Right hip does show moderate degenerative changes with joint space narrowing. There is spurring at the femoral head neck junction. Left hip is intact. No fractures are seen within either hip. The rami are unremarkable. SI joints and symphysis are non-widened. IMPRESSION: Right hip joint degenerative change. No acute bony abnormality is detected. Dictated by: Dictated on workstation # [id number]
--- NOTE | 2021-12-01 14:21 | Diagnostic Imaging Report ---
INDICATION: Fall with continued left knee pain. TIME OF EXAM: 1:13 PM 3 views left knee demonstrate normal alignment. There is medial compartmental joint space narrowing and marginal spurring consistent with degenerative change. The lateral and patellofemoral compartments are well-maintained. No fracture, dislocation or effusion is seen. IMPRESSION: Degenerative changes. No acute bony abnormalities detected. Dictated by: Dictated on workstation # [id number]
== END ==
LOC: RAD 12:39
PROVIDERS: ATTEND Registered Nurse
DX: M16.11 Unilateral primary osteoarthritis, right hip (principal); M25.552 Pain in left hip; M17.12 Unilateral primary osteoarthritis, left knee
CPT/HCPCS: 73523; 73562

== ENCOUNTER 2022-08-05 18:33 | Emergency (ER) | payer MEDICARE ==
[~2022-08-05] VITALS: Ht 154 cm; Wt 58.6 kg
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
--- NOTE | 2022-08-05 19:19 | Diagnostic Imaging Report ---
PROCEDURE: CT head and CT cervical spine without contrast. TECHNIQUE: Multiple contiguous axial images were obtained through the brain and cervical spine without the use of intravenous contrast. Sagittal and coronal reformations through the cervical spine were then performed. Auto Exposure Controls were utilized during the CT exam to meet ALARA standards for radiation dose reduction. INDICATION: Trauma, pain. COMPARISON: 05/08/2021 and 06/18/2018. FINDINGS: Mild atrophy. Chronic infarction within the anterior right basal ganglia is again identified. No intracranial hemorrhage. No intracranial mass, mass effect, midline shift, herniation, hydrocephalus or extra-axial fluid collection. Mild background chronic small vessel white matter ischemic disease is present. No definite CT evidence of an acute ischemic infarction. Background vascular calcifications. The bilateral ocular lenses are absent. The paranasal sinuses are clear. The calvarium and extracalvarial soft tissues are unremarkable. Minimal anterolisthesis of C3 on C4 and C6 on C7, appearing unchanged since 2018. No new anterolisthesis or retrolisthesis. Alignment of the atlantooccipital joint is well maintained. Prominent pannus formation about the atlantoaxial joint is again seen. Vertebral body heights appear unchanged from the prior examination with scattered endplate degenerative changes noted. No acute fracture or dislocation. No destructive osseous process. Moderate to severe disc space height loss at C4/C5, C5/C6 and C6/C7. Scattered facet joint degenerative changes. Multilevel central canal stenosis is present without severe osseous central canal stenosis. Significant background vascular calcifications. No apical pneumothorax. IMPRESSION: No acute intracranial abnormality with background chronic ischemic changes as above. No acute osseous abnormality within the cervical spine with moderate multilevel degenerative changes. Dictated by: Dictated on workstation # [id number]
[2022-08-05 19:52] VITALS: BP 185/65
== END 2022-08-05 19:54 | disposition home or self-care (01) ==
LOC: EDUNIT# 18:33 → ER 18:33
DX: S09.90XA Unspecified injury of head, initial encounter (principal); R40.2362 Coma scale, best motor response, obeys commands, at arrival to emergency department; R40.2142 Coma scale, eyes open, spontaneous, at arrival to emergency department; R40.2252 Coma scale, best verbal response, oriented, at arrival to emergency department; V89.2XXA Person injured in unspecified motor-vehicle accident, traffic, initial encounter; W22.8XXA Striking against or struck by other objects, initial encounter; Y92.410 Unspecified street and highway as the place of occurrence of the external cause
CPT/HCPCS: 70450; 72125

== ENCOUNTER 2022-09-27 21:05 | Inpatient (IN) | payer MEDICARE ==
[~2022-09-27] VITALS: Ht 152.4 cm; Wt 64.3 kg
--- NOTE | 2022-09-27 21:40 | ED GI ---
General Chief Complaint: Fever-Adult/Adol Stated Complaint: FEVER Nursing Triage Note: PT TO RM 9, JUST RELEASED FROM TODAY AFTER BIOPSY, RECENTLY DX WITH PANCREATIC MASS, FEVER THIS EVENING OF 102.5 TYLENOL GIVEN AT 2015, 37.1 AT TRIAGE Source of Information: Patient, Family, Old Records Exam Limitations: No Limitations History of Present Illness Date Seen by Provider: Sep 27, 2022 Time Seen by Provider: 21:12 Initial Comments 82-year-old female with past medical history most notable for diabetes, hypertension, CVA on Plavix coming in with daughter due to concerns for fever. Within the past couple of weeks, the patient was jaundiced, had a CT of her abdomen and pelvis concerning for a pancreatic head mass. Was admitted to [facility] last week, had an ERCP with stent placed yesterday. Was discharged this morning when her total bilirubin trended down from 15-10. Got home about 4 hours prior to arrival to the emergency department. She started to feel warm, temperature was 102. Having some epigastric discomfort which is really unchanged. Had some Tylenol at home about an hour prior to arrival. Family contacted , and they recommended coming in to the local emergency department. Allergies and Home Medications Allergies Coded Allergies: prochlorperazine (Unverified Allergy, Intermediate, 05/23/08) Patient Home Medication List Home Medication List Reviewed: Yes Aspirin (Aspirin) 81 Mg Tab.chew, 81 MG PO DAILY, (Reported) Entered as Reported by: VIKKI CASH on 03/30/20 135 Atenolol (Atenolol) 50 Mg Tablet, 50 MG PO DAILY, (Reported) Entered as Reported by: VIKKI CASH on 03/30/20 135 Atorvastatin Calcium (Atorvastatin Calcium) 20 Mg Tablet, 20 MG PO DAILY, (Reported) Entered as Reported by: VIKKI CASH on 03/30/20 135 Calcium Carbonate (Calcium) 600 Mg Tablet, 600 MG PO DAILY, (Reported) Entered as Reported by: VIKKI CASH on 03/30/20 135 Cholecalciferol (Vitamin D3) (Vitamin D3) 25 Mcg Tablet, 25 MCG PO DAILY, (Reported) Entered as Reported by: VIKKI CASH on 03/30/20 135 Clopidogrel Bisulfate (Clopidogrel) 75 Mg Tablet, 75 MG PO DAILY, (Reported) Entered as Reported by: KENYA REDDY on 06/18/18 1152 Cyanocobalamin (Vitamin B-12) (B-12) 1,000 Mcg Tablet, 1,000 MCG PO DAILY, (Reported) Entered as Reported by: VIKKI CASH on 03/30/20 1356 Gabapentin (Gabapentin) 100 Mg Capsule, 100 MG PO BID, (Reported) Entered as Reported by: VIKKI CASH on 03/30/20 1356 Lactobacillus Acidophilus (Acidophilus) 1 Each Tablet, 1 EACH PO DAILY, (Reported) Entered as Reported by: VIKKI CASH on 03/30/20 1356 Lidocaine (Lidocaine 5% Patch) 1 Each Adh..patch, 1 EACH TP Q12H PRN for Neuropathic pain Prescribed by: NEELAM FERRELL on 05/08/21 1153 Losartan/Hydrochlorothiazide (Losartan-Hctz 100-25 mg Tab) 1 Each Tablet, 1 EACH PO DAILY, (Reported) Entered as Reported by: VIKKI CASH on 03/30/20 1356 Metformin HCl (Metformin HCl) 500 Mg Tablet, 500 MG PO DAILY, (Reported) Entered as Reported by: VIKKI CASH on 03/30/20 1356 Mv-Mn/FA/Vit K/Lycop/Lut/Zeaxa (Ocuvite Eye + Multi Tablet) 1 Each Tablet, 1 EACH PO DAILY, (Reported) Entered as Reported by: VIKKI CASH on 03/30/20 1356 Mv-Mn/Folic Acid/Calcium/Vit K (Women's 50 Plus Multivit Tab) 1 Each Tablet, 1 EACH PO DAILY, (Reported) Entered as Reported by: VIKKI CASH on 03/30/20 1356 Omeprazole (Omeprazole) 40 Mg Capsule.dr, 40 MG PO DAILY, (Reported) Entered as Reported by: VIKKI CASH on 03/30/20 1356 Sitagliptin Phosphate (Januvia) 100 Mg Tablet, 100 MG PO DAILY, (Reported) Entered as Reported by: VIKKI CASH on 03/30/20 1356 Review of Systems Review of Systems Constitutional: fever EENTM: No Symptoms Reported Respiratory: No Symptoms Reported Cardiovascular: No Symptoms Reported Gastrointestinal: See HPI Genitourinary: No Symptoms Reported Musculoskeletal: no symptoms reported Skin: see HPI Psychiatric/Neurological: No Symptoms Reported Endocrine: No Symptoms Reported Past Tdmijzx-Hqwqxp-Yngvhm Hx Patient Social History Tobacco Use?: No Substance use?: No Alcohol Use?: Yes Alcohol type: Hard Liquor Alcohol Frequency: Rarely Immunizations Up To Date First/Initial COVID19 Vaccinat: September COVID19 Vaccination Lcio: September COVID19 Vaccination Date: SEPTEMBER Seasonal Allergies Seasonal Allergies: Yes Past Medical History Surgery/Hospitalization HX: HTN, 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, PANCREATIC MASS, YANET, HYSTERECTOMY, CARPAL TUNNEL BI LAT Surgeries: Yes (bilat CTR) Gallbladder, Hysterectomy Respiratory: Yes Sleep Apnea Currently Using CPAP: Yes Cardiac: Yes Hypertension Neurological: Yes (2018 stroke, L side effected) Stroke Genitourinary: No Gastrointestinal: Yes (rectal bleeding) Musculoskeletal: No Endocrine: Yes Diabetes, Non-Insulin dep HEENT: Yes Macular Degeneration Loss of Vision: Denies Cancer: No Psychosocial: No Integumentary: No Blood Disorders: No Family Medical History No Pertinent Family Hx Physical Exam Vital Signs Vital Signs - First Documented 09/27/22 09/27/22 21:16 22:30 Temp 37.1 Pulse 70 Resp 22 B/P (MAP) 122/50 (74) O2 Delivery Room Air O2 Flow Rate 2.00 Capillary Refill : Less Than 3 Seconds Height/Weight/BMI Height: 5'1.00" Weight: 157lbs. 0.0oz. 71.213343fx; 25.00 BMI Method:Stated General Appearance: other (Jaundice) HEENT: PERRL/EOMI, normal ENT inspection, pharynx normal Neck: non-tender, full range of motion, supple, normal inspection Respiratory: chest non-tender, lungs clear, normal breath sounds, no re spiratory distress, no accessory muscle use Cardiovascular: regular rate, rhythm, no edema, no murmur Gastrointestinal: normal bowel sounds, soft; No distended, No guarding, No rebound; tenderness (Mild epigastric tenderness) Extremities: normal range of motion, non-tender, normal inspection, no pedal edema, no calf tenderness, normal capillary refill Back: no CVA tenderness Neurologic/Psychiatric: no motor/sensory deficits, alert, normal mood/affect, oriented x 3 Skin: warm/dry, jaundice Focused Exam Lactate Level 09/27/22 21:30: Lactic Acid Level 1.56 Lactic Acid Level Laboratory Tests Test 09/27/22 21:30 Lactic Acid Level 1.56 MMOL/L (0.50-2.00) Progress/Results/Core Measures Results/Orders Lab Results Laboratory Tests Test 09/27/22 21:30 09/27/22 23:32 Range/Units White Blood Count 19.9 H 4.3-11.0 10^3/uL Red Blood Count 2.56 L 3.80-5.11 10^6/uL Hemoglobin 7.6 L 11.5-16.0 g/dL Hematocrit 22 L 35-52 % Mean Corpuscular Volume 84 80-99 fL Mean Corpuscular Hemoglobin 30 25-34 pg Mean Corpuscular Hemoglobin Concent 35 32-36 g/dL Red Cell Distribution Width 14.7 H 10.0-14.5 % Platelet Count 215 130-400 10^3/uL Mean Platelet Volume 10.6 9.0-12.2 fL Immature Granulocyte % (Auto) 1 % Neutrophils (%) (Auto) 89 H 42-75 % Lymphocytes (%) (Auto) 3 L 12-44 % Monocytes (%) (Auto) 7 0-12 % Eosinophils (%) (Auto) 0 0-10 % Basophils (%) (Auto) 0 0-10 % Neutrophils # (Auto) 17.7 H 1.8-7.8 10^3/uL Lymphocytes # (Auto) 0.6 L 1.0-4.0 10^3/uL Monocytes # (Auto) 1.3 H 0.0-1.0 10^3/uL Eosinophils # (Auto) 0.0 0.0-0.3 10^3/uL Basophils # (Auto) 0.0 0.0-0.1 10^3/uL Immature Granulocyte # (Auto) 0.2 H 0.0-0.1 10^3/uL Neutrophils % (Manual) 86 % Lymphocytes % (Manual) 5 % Monocytes % (Manual) 4 % Band Neutrophils 5 % Platelet Estimate NORMAL Anisocytosis MODERATE Microcytosis SLIGHT Macrocytosis SLIGHT Stomatocytes SLIGHT Prothrombin Time 17.2 H 12.2-14.7 SEC INR Comment 1.4 0.8-1.4 Activated Partial Thromboplast Time 46 H 24-35 SEC Sodium Level 125 *L 135-145 MMOL/L Potassium Level 3.5 L 3.6-5.0 MMOL/L Chloride Level 95 L 98-107 MMOL/L Carbon Dioxide Level 19 L 21-32 MMOL/L Anion Gap 11 5-14 MMOL/L Blood Urea Nitrogen 23 H 7-18 MG/DL Creatinine 1.22 0.60-1.30 MG/DL Estimat Glomerular Filtration Rate 44 BUN/Creatinine Ratio 19 Glucose Level 202 H 70-105 MG/DL Lactic Acid Level 1.56 0.50-2.00 MMOL/L Calcium Level 8.2 L 8.5-10.1 MG/DL Corrected Calcium 9.3 8.5-10.1 MG/DL Magnesium Level 1.2 L 1.6-2.4 MG/DL Total Bilirubin 8.3 H 0.1-1.0 MG/DL Aspartate Amino Transf (AST/SGOT) 124 H 5-34 U/L Alanine Aminotransferase (ALT/SGPT) 108 H 0-55 U/L Alkaline Phosphatase 743 H 40-136 U/L Total Protein 6.7 6.4-8.2 GM/DL Albumin 2.6 L 3.2-4.5 GM/DL Lipase 52 8-78 U/L Urine Color ORANGE Urine Clarity CLEAR Urine pH 6 5-9 Urine Specific Hughson <=1.005 1.016-1.022 Urine Protein NEGATIVE NEGATIVE Urine Glucose (UA) NEGATIVE NEGATIVE Urine Ketones NEGATIVE NEGATIVE Urine Nitrite NEGATIVE NEGATIVE Urine Bilirubin 2+ H NEGATIVE Urine Urobilinogen 1.0 < = 1.0 MG/DL Urine Leukocyte Esterase NEGATIVE NEGATIVE Urine RBC (Auto) NEGATIVE NEGATIVE Urine RBC NONE /HPF Urine WBC RARE /HPF Urine Squamous Epithelial Cells 0-2 /HPF Urine Crystals NONE /LPF Urine Bacteria NEGATIVE /HPF Urine Casts NONE /LPF Urine Mucus NEGATIVE /LPF Urine Culture Indicated NO My Orders Orders - NIURKA AVALOS MD Cbc With Automated Diff (09/27/22 21:27) Comprehensive Metabolic Panel (09/27/22 21:27) Blood Culture (09/27/22 21:27) Urinalysis (09/27/22 21:27) Urine Culture (09/27/22 21:27) Protime With Inr (09/27/22 21:27) Partial Thromboplastin Time (09/27/22 21:27) Chest 1 View, Ap/Pa Only (09/27/22 21:27) Ed Iv/Invasive Line Start (09/27/22 21:27) Vital Signs Adult Sepsis Patie Q15M (09/27/22:27) O2 (09/27/22:) Remove Rings In Anticipation O (09/27/22:) Lactic Acid Analyzer (09/27/22:) Lipase (09/27/22:) Magnesium (09/27/22:) Ct Abdomen/Pelvis W (09/27/22:) Manual Differential (09/27/22 21:30) Iohexol Injection (Omnipaque 350 Mg/Ml 1 (09/27/22 22:00) Received Contrast (Hold Metformin- Contr (09/27/22 22:00) Ns (Ivpb) (Sodium Chloride 0.9% Ivpb Bag (09/27/22 22:00) Piperacillin Sodium/Tazobactam (Zosyn Vi (09/28/22 00:25) Lactated Ringers (Lr 1000 Ml Iv Solution (09/28/22 00:25) Ns (Ivpb) (Sodium Chloride 0.9% Ivpb Bag (09/28/22 00:25) Lactated Ringers (Lr 1000 Ml Iv Solution (09/28/22 02:02) Medications Given in ED Current Medications Medications Dose Ordered Sig/Jacob Route Start Time Stop Time Status Last Admin Dose Admin Iohexol 100 ml ONCE ONCE IV 09/27/22 22:00 09/27/22 22:01 DC 09/27/22 21:59 65 ML Lactated Ringer's 1,000 ml @ ud STK-MED ONCE IV 09/28/22 00:25 09/28/22 01:03 DC 09/28/22 00:25 500 MLS/HR Piperacillin Sod/ Tazobactam Sod 4.5 gm STK-MED ONCE IV 09/28/22 00:25 09/28/22 01:03 DC 09/28/22 00:25 4.5 GM Sodium Chloride 100 ml ONCE ONCE IV 09/27/22 22:00 09/27/22 22:01 DC 09/27/22 21:59 80 ML Sodium Chloride 100 ml @ ud STK-MED ONCE .ROUTE 09/28/22 00:25 09/28/22 01:03 DC 09/28/22 00:25 100 MLS/HR Vital Signs/I&O 09/27/22 09/27/22 21:16 22:30 Temp 37.1 Pulse 70 Resp 22 B/P (MAP) 122/50 (74) O2 Delivery Room Air Nasal Cannula O2 Flow Rate 2.00 Blood Pressure Mean: 74 Progress Progress Note : Progress Note 82-year-old female presenting due to fever. ABCs were intact vitals were stable on presentation. Physical exam with a soft abdomen, slightly tender in her epigastric region. She is clearly jaundiced which her xonaxwyn-nh-avu states appears better than prior. An IV was placed and basic labs were obtained including lactic acid and blood cultures. Lactic acid normal, white blood cell count elevated just under 20,000, this was up from earlier today around 10,000 per YESICA's report. Her total bilirubin continues to trend down from 10 to around 8, creatinine around her baseline, alk phos trending down around 700. CT imaging with possible duodenitis as well as ileus. The stent is in place in her biliary tree. I contacted and they are paging the GI physician on-call to discuss her case. Patient is afebrile here. Given the thyrotoxin appear to be any ductal dilatation and her GI tract since the stent, bilirubin is trending down, alk phos is trending down, does not appear clinically like she has an obstruction. This goes against a diagnosis of a sending cholangitis. Additionally, the patient is well-appearing here and nontoxic. Lactic acid normal. Her white blood count is certainly elevated, but not showing any other signs of infection. From a GI standpoint, is stating they would just have her follow-up as an outpatient. Repeat blood pressure here trended down initially, was given a gentle bolus of fluids and Zosyn given the elevated white blood cell count and the recent GI instrumentation. Unfortunately there are no beds in the hospital here or at , so we will continue to monitor the patient in the emergency department and continue to trend her blood pressure. Blood pressure around 2 AM was 80s over 30s. At this point started a second bolus of IV fluids. I contacted at this point for transfer to the intensive care unit since they do have ICU beds available. They will be calling back shortly. YESICA called back around 4 AM in the morning, unfortunately they have no beds to offer her at this time. They think that situation could change later on in the day. Their GI doctor recommended continued Zosyn and monitoring. They did not recommend any GI interventions at this time, and they recommended admitting to our hospital even without GI services. They state that they may be available for transfer later on in the day. I then contacted Dr. Bailey, who will admit the patient under inpatient status to the intensive care unit. I then contacted the ICU physician for signout. The patient will continue to board in the emergency department for likely several hours waiting on an ICU bed to open up in our hospital. Diagnostic Imaging Diagonstic Imaging: CT (abd/pelvis) Comments NAME: DOROTHY KWONG [facility] REC#: [id number] PT STATUS: REG ER : 1940 PHYSICIAN: NIURKA AVALOS MD ADMIT DATE: 09/27/22/ER Draft Date of Exam:09/27/22 CT ABDOMEN/PELVIS W PROCEDURE: CT abdomen and pelvis with contrast. TECHNIQUE: Multiple contiguous axial images were obtained through the abdomen and pelvis after administration of intravenous contrast. Auto Exposure Controls were utilized during the CT exam to meet ALARA standards for radiation dose reduction. All CT scans use one or more of the following dose optimizing techniques: automated exposure control, MA and/or KvP adjustment based on patient size and exam type or iterative reconstruction. INDICATION: 82-year-old female with recent ERCP, fever. COMPARISONS: 11/29/2019 FINDINGS: Lung bases are essentially clear. Cardiac contour is normal. Coronary calcifications are seen. Prominent calcifications are seen at the mitral annulus. Liver shows uniform attenuation. There is pneumobilia. This is secondary to a biliary stent in place. Gallbladder surgically absent. Spleen is normal. There is a small hiatal hernia. Stomach shows some prominence of the antrum and pylorus. The transverse duodenum is decompressed. Adrenals are normal. Pancreas shows atrophy but sharp margins. There is prominence of the pancreatic duct. Adrenals are normal. Kidneys appear normal in size, position, and contour. There is no obstructive uropathy. Both ureters are seen intermittently through their course and appear unremarkable. Bladder is nondistended. Nonopacified loops of small bowel are grossly unremarkable. Large bowel contains a moderate amount of fecal load. Visualized vasculature shows nonaneurysmal aortic calcifications extending to the iliac and femoral arteries. There is normal origin of the visceral arteries. Bone windows show degenerative changes of lumbosacral spine. There appears to be a chronic compression fracture of T11 with approximately 30% loss in height. IMPRESSION: 1. There is pneumobilia due to the presence of a biliary stent. 2. There is some inflammatory process in the descending duodenum consistent with some duodenitis. An element of mild pancreatitis at the pancreatic head is not excluded. There is associated mechanical partial gastric outlet obstruction with a dilated pylorus and gastric antrum. 3. Small hiatal hernia. 4. There is small bowel ileus with fluid-filled loops. Large bowel contains a large quantity of fecal material and gas. Dictated on workstation # [id number] Dict: 09/27/222205 Trans: 09/27/222216 [facility] [id number] Interpreted by: MIHAELA MAGDALENO MD Electronically signed by: Departure Impression Primary Impression: Severe sepsis Additional Impressions: Fever Qualified Codes: R50.9 - Fever, unspecified Hyperbilirubinemia Pancreatic mass Disposition: ADMITTED INPATIENT Condition: Stable Admissions Decision to Admit Reason: Admit from ER (General) Decision to Admit/Date: Sep 28, 2022 Time/Decision to Admit Time: 23:30 Departure-Patient Inst. Referrals: HUSSEIN IBARRA DO (PCP/Family) Primary Care Physician Patient Instructions: Fever, Adult ED Add. Discharge Instructions: Please call [facility] tomorrow especially things are not improving. Work/School Note: Family Work Note Patient Received Medical Care In the Emergency Department On: Sep 27, 2022 Patient Will Be Able to Return to Work/School On: Sep 29, 2022 NIURKA AVALOS MD Sep 27, 2022 21:40
[2022-09-27 21:44] LABS: BASOPHILS % (AUTO) 0 % (0-10); EOSINOPHILS % (AUTO) 0 % (0-10); HEMATOCRIT 22 % (35-52); HEMOGLOBIN 7.6 g/dL (11.5-16.0); LYMPHOCYTES # (AUTO) 0.6 10^3/uL (1.0-4.0); LYMPHOCYTES % (AUTO) 3 % (12-44); MEAN CORPUSCULAR HEMOGLOBIN 30 pg (25-34); MEAN CORPUSCULAR HGB CONC 35 g/dL (32-36); MEAN CORPUSCULAR VOLUME 84 fL (80-99); MEAN PLATELET VOLUME 10.6 fL (9.0-12.2); MONOCYTES # (AUTO) 1.3 10^3/uL (0.0-1.0); MONOCYTES % (AUTO) 7 % (0-12); NEUTROPHILS # (AUTO) 17.7 10^3/uL (1.8-7.8); NEUTROPHILS % (AUTO) 89 % (42-75); PLATELET COUNT 215 10^3/uL (130-400); WHITE BLOOD COUNT 19.9 10^3/uL (4.3-11.0)
[2022-09-27 21:55] LABS: INR 1.4 (0.8-1.4); PROTHROMBIN TIME PATIENT 17.2 SEC (12.2-14.7)
[2022-09-27] MEDS ORDERED: NS 100 ML (IVPB) BAG IV ONE (22:00)
[2022-09-27] MEDS ORDERED: IOHEXOL 350 MG/ML 100 ML (OMNIPAQUE 350) VIAL IV ONE (22:00)
[2022-09-27] MEDS ORDERED: HOLD METFORMIN - RECEIVED CONTRAST 20 ML VIAL IV SCH (22:00)
[2022-09-27 22:08] LABS: ALBUMIN 2.6 GM/DL (3.2-4.5); BILIRUBIN,TOTAL 8.3 MG/DL (0.1-1.0); CALCIUM 8.2 MG/DL (8.5-10.1); CREATININE SERUM 1.22 MG/DL (0.60-1.30); MAGNESIUM 1.2 MG/DL (1.6-2.4); POTASSIUM 3.5 MMOL/L (3.6-5.0); TOTAL PROTEIN 6.7 GM/DL (6.4-8.2)
--- NOTE | 2022-09-27 22:11 | Diagnostic Imaging Report ---
INDICATION: Shortness of breath COMPARISONS: 05/08/2021 FINDINGS: Single view of the chest shows the cardiac contour to be within normal limits. There is development of central venous congestion. A few basilar atelectatic infiltrates are seen but no confluent consolidations. There is no effusion or pneumothorax. Soft tissues and bony thorax are unremarkable. IMPRESSION: Early developing congestive heart failure with superimposed minimal basilar atelectatic infiltrates but no confluent consolidations. Dictated by: Dictated on workstation # [id number]
--- NOTE | 2022-09-27 22:17 | Diagnostic Imaging Report ---
PROCEDURE: CT abdomen and pelvis with contrast. TECHNIQUE: Multiple contiguous axial images were obtained through the abdomen and pelvis after administration of intravenous contrast. Auto Exposure Controls were utilized during the CT exam to meet ALARA standards for radiation dose reduction. All CT scans use one or more of the following dose optimizing techniques: automated exposure control, MA and/or KvP adjustment based on patient size and exam type or iterative reconstruction. INDICATION: 82-year-old female with recent ERCP, fever. COMPARISONS: 11/29/2019 FINDINGS: Lung bases are essentially clear. Cardiac contour is normal. Coronary calcifications are seen. Prominent calcifications are seen at the mitral annulus. Liver shows uniform attenuation. There is pneumobilia. This is secondary to a biliary stent in place. Gallbladder surgically absent. Spleen is normal. There is a small hiatal hernia. Stomach shows some prominence of the antrum and pylorus. The transverse duodenum is decompressed. Adrenals are normal. Pancreas shows atrophy but sharp margins. There is prominence of the pancreatic duct. Adrenals are normal. Kidneys appear normal in size, position, and contour. There is no obstructive uropathy. Both ureters are seen intermittently through their course and appear unremarkable. Bladder is nondistended. Nonopacified loops of small bowel are grossly unremarkable. Large bowel contains a moderate amount of fecal load. Visualized vasculature shows nonaneurysmal aortic calcifications extending to the iliac and femoral arteries. There is normal origin of the visceral arteries. Bone windows show degenerative changes of lumbosacral spine. There appears to be a chronic compression fracture of T11 with approximately 30% loss in height. IMPRESSION: 1. There is pneumobilia due to the presence of a biliary stent. 2. There is some inflammatory process in the descending duodenum consistent with some duodenitis. An element of mild pancreatitis at the pancreatic head is not excluded. There is associated mechanical partial gastric outlet obstruction with a dilated pylorus and gastric antrum. 3. Small hiatal hernia. 4. There is small bowel ileus with fluid-filled loops. Large bowel contains a large quantity of fecal material and gas. Dictated by: Dictated on workstation # [id number]
[2022-09-27 22:30] LABS: ANISOCYTOSIS MODERATE; BAND NEUTROPHILS 5 %; LYMPHOCYTES % (MANUAL) 5 %; MONOCYTES % (MANUAL) 4 %; NEUTROPHILS % (MANUAL) 86 %; PLATELET ESTIMATE NORMAL
[2022-09-27 22:31] LABS: MICROCYTOSIS SLIGHT; STOMATOCYTES SLIGHT
[2022-09-28] VITALS (9 sets, daily range): BP systolic 93–119; BP diastolic 31–83
[2022-09-28] MEDS ORDERED: LACTATED RINGERS 1,000 ML IV ONE (00:25)
[2022-09-28] MEDS ORDERED: PIPERACILLIN/TAZO 4.5 GM VIAL (ZOSYN) IV ONE (00:25)
[2022-09-28] MEDS ORDERED: NS (IVPB) 100 ML ONE (00:25)
[2022-09-28 02:02] LABS: CLARITY,URINE CLEAR; COLOR,URINE ORANGE; GLUCOSE, URINE (UA) NEGATIVE (NEGATIVE); PH,URINE 6 (5-9); PROTEIN,URINE NEGATIVE (NEGATIVE)
[2022-09-28] MEDS ORDERED: LACTATED RINGERS 1,000 ML IV STA (02:02)
[2022-09-28 02:03] LABS: BACTERIA,URINE NEGATIVE /HPF; KETONES,URINE NEGATIVE (NEGATIVE); LEUKOCYTE ESTERASE ,URINE NEGATIVE (NEGATIVE); NITRITE,URINE NEGATIVE (NEGATIVE); WBC,URINE RARE /HPF
[2022-09-28 02:04] LABS: BILIRUBIN,URINE 2+ (NEGATIVE); SQUAMOUS EPITHELIAL CELL,UR 0-2 /HPF
[2022-09-28 04:33] LABS: BASOPHILS % (AUTO) 0 % (0-10); EOSINOPHILS % (AUTO) 0 % (0-10); LYMPHOCYTES % (AUTO) 6 % (12-44); MEAN CORPUSCULAR HEMOGLOBIN 30 pg (25-34); MEAN CORPUSCULAR HGB CONC 35 g/dL (32-36); MEAN CORPUSCULAR VOLUME 85 fL (80-99); MEAN PLATELET VOLUME 10.7 fL (9.0-12.2); MONOCYTES % (AUTO) 5 % (0-12); NEUTROPHILS # (AUTO) 16.1 10^3/uL (1.8-7.8); NEUTROPHILS % (AUTO) 88 % (42-75); PLATELET COUNT 173 10^3/uL (130-400); WHITE BLOOD COUNT 18.3 10^3/uL (4.3-11.0)
[2022-09-28 04:40] LABS: ALBUMIN 2.5 GM/DL (3.2-4.5); POTASSIUM 3.7 MMOL/L (3.6-5.0)
[2022-09-28 04:41] LABS: CALCIUM 7.8 MG/DL (8.5-10.1)
[2022-09-28 04:42] LABS: HEMATOCRIT 20 % (35-52)
[2022-09-28 04:43] LABS: TOTAL PROTEIN 6.3 GM/DL (6.4-8.2)
[2022-09-28 04:44] LABS: BILIRUBIN,TOTAL 7.6 MG/DL (0.1-1.0)
[2022-09-28] MEDS ORDERED: NS IV 500 ML 500 ML IV SCH (04:45)
[2022-09-28 04:46] LABS: CREATININE SERUM 1.05 MG/DL (0.60-1.30)
[2022-09-28] MEDS ORDERED: ONDANSETRON 4 MG/2 ML (SDV) Z0FRAN IV PRN (05:30)
[2022-09-28] MEDS ORDERED: ACETAMINOPHEN 500 MG TAB (TYLENOL) PO PRN (05:30)
[2022-09-28] MEDS ORDERED: CATHETER FLUSH 10 ML SYR IVP PRN (05:30)
[2022-09-28] MEDS ORDERED: CATHETER FLUSH 10 ML SYR IVP SCH (06:00)
[2022-09-28] MEDS ORDERED: PIPERACILLIN SODIUM/TAZOBACTAM 4.5 GM in NS (IVPB) 100 ML IV SCH (06:00)
[2022-09-28] MEDS: inSUlin ASPART (NovoLOG) 1 UNIT/0.01 ML (CHARGE PER UNIT) SC SCH ×2 (06:17→11:50)
[2022-09-28] MEDS ORDERED: NS IV 500 ML 500 ML ONE (06:19)
[2022-09-28] MEDS ORDERED: RT-ALBUTEROL SULF 2.5 MG/3 ML PRE-MIX VIAL INH PRN (06:30)
[2022-09-28] MEDS ORDERED: PIPERACILLIN SODIUM/TAZOBACTAM 4.5 GM in NS (IVPB) 100 ML IV ONE (06:30)
[2022-09-28] MEDS ORDERED: RT-ALBUTEROL SULF 2.5 MG/3 ML PRE-MIX VIAL INH SCH (08:00)
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
[2022-09-28] MEDS ORDERED: AMLO2.5T4 PO (11:40)
[2022-09-28] MEDS ORDERED: POLY17PO6 PO (11:40)
[2022-09-28] MEDS ORDERED: ACET-2267 PO (11:40)
[2022-09-28] MEDS ORDERED: CALC500T7 PO (11:40)
[2022-09-28] MEDS ORDERED: UBID200C16 PO (11:40)
[2022-09-28] MEDS ORDERED: DOCU100C37 PO (11:40)
[2022-09-28] MEDS ORDERED: ATOR80TA76 PO (11:40)
[2022-09-28] MEDS ORDERED: ALPR0.254 PO (11:40)
[2022-09-28] MEDS ORDERED: CARB15DR OU (11:40)
[2022-09-28] MEDS ORDERED: ASPI-1238 PO (11:40)
[2022-09-28 21:36] LABS: HEPATITIS C ANTIBODY C Non-Reactive (Non-Reactive)
--- NOTE | 2022-09-29 13:42 | Physician Query Clarification ---
PQ-Link Infection to Dev/Proc Admission/Discharge Admission Date: Sep 28, 2022 at 04:54 Discharge Date: Sep 28, 2022 at 13:55 Dr. Monroe, The medical record reflects the following clinical scenario: History/Risk Factors: pancreatic mass, severe sepsis Clinical Findings: T36.1, WBC 19.9, Lactic acid 1.56, R 22, BP 122/50 Treatment: IV Zosyn Question: Can you specify if the severe sepsis is due to/associated with bili tati stent or pancreas biopsy? Please document a response in Progress Note or Discharge Summary. 1. Yes - severe sepsis is due to/associated with biliary stent or pancreas biopsy. 2. No - severe sepsis is due to/associated with biliary stent or pancreas biopsy. 3. Other, with explanation of the clinical findings. 4. Clinically undetermined, no explanation for the clinical findings. PHYSICIAN RESPONSE Specify if infection: 1 Explanation of clincal finding yes due to stent placement and cultures just came back stent caused e coli bacteremia that caused sepsis In responding to this query, please exercise your independent professional judgment. The purpose of this communication is to more accurately reflect the complexity of your patients condition. The fact that a question is asked does not imply that any particular answer is desired or expected. Thank you for your timely response to this clarification. Requestors name: Sailaja THIS PHYSICIAN QUERY FORM IS A PERMANENT PART OF THE MEDICAL RECORD SAILAJA HERNANDEZ Sep 29, 2022 13:42 SITA MONROE MD Sep 29, 2022 13:54
== END 2022-09-28 13:55 | disposition short-term general hospital (02) | DRG 862 ==
LOC: EDUNIT# 21:05 → ER 21:07 → ICU 09-28 04:54
PROVIDERS: ADMIT Internal Medicine; ATTEND Internal Medicine
DX: T81.44XA Sepsis following a procedure, initial encounter (principal); A41.9 Sepsis, unspecified organism; R65.20 Severe sepsis without septic shock; K86.9 Disease of pancreas, unspecified; I69.398 Other sequelae of cerebral infarction; H53.9 Unspecified visual disturbance; G47.30 Sleep apnea, unspecified; I10 Essential (primary) hypertension; E11.9 Type 2 diabetes mellitus without complications; D64.9 Anemia, unspecified; H35.30 Unspecified macular degeneration; E80.6 Other disorders of bilirubin metabolism; Z95.820 Peripheral vascular angioplasty status with implants and grafts; Z79.02 Long term (current) use of antithrombotics/antiplatelets; Z79.82 Long term (current) use of aspirin; Z79.84 Long term (current) use of oral hypoglycemic drugs; Z79.899 Other long term (current) drug therapy
CPT/HCPCS: 36415; 71045; 74177; 80053; 81000; 82947; 83605; 83690; 83735; 85007; 85025; 85027; 85610; 85730; 86701; 86803; 86850; 86900; 86901; 86920; 87040; 87077; 87081; 87088; 87186; 87340; 87389; 94640; 94664

== ENCOUNTER 2022-10-25 15:02 | Inpatient (IN) | payer MEDICARE ==
[~2022-10-25] VITALS: Ht 150 cm; Wt 57.8 kg
[~2022-10-25 15:02] MED LIST changes: +ACET-2267 PO; +ALPR0.254 PO; +AMLO2.5T4 PO; +ASPI-1238 PO; +ATOR80TA76 PO; +CALC500T7 PO; +CARB15DR OU; +DOCU100C37 PO; +POLY17PO6 PO; +UBID200C16 PO
[2022-10-25] MEDS ORDERED: cefTRIAXone IV/IM 1,000 MG in NS (IVPB) 50 ML IV ONE (15:45)
[2022-10-25] MEDS ORDERED: NS IV 1000 ML 1,000 ML IV SCH (15:45)
[2022-10-25 15:59] LABS: BASOPHILS % (AUTO) 0 % (0-10); EOSINOPHILS % (AUTO) 0 % (0-10); HEMATOCRIT 22 % (35-52); LYMPHOCYTES # (AUTO) 1.9 10^3/uL (1.0-4.0); LYMPHOCYTES % (AUTO) 10 % (12-44); MEAN CORPUSCULAR HEMOGLOBIN 30 pg (25-34); MEAN CORPUSCULAR HGB CONC 36 g/dL (32-36); MEAN CORPUSCULAR VOLUME 83 fL (80-99); MONOCYTES # (AUTO) 1.1 10^3/uL (0.0-1.0); MONOCYTES % (AUTO) 6 % (0-12); NEUTROPHILS # (AUTO) 15.9 10^3/uL (1.8-7.8); NEUTROPHILS % (AUTO) 83 % (42-75); PLATELET COUNT 353 10^3/uL (130-400); WHITE BLOOD COUNT 19.2 10^3/uL (4.3-11.0)
[2022-10-25 16:04] LABS: BILIRUBIN,URINE 1+ (NEGATIVE); CLARITY,URINE CLEAR; COLOR,URINE YELLOW; GLUCOSE, URINE (UA) NEGATIVE (NEGATIVE); KETONES,URINE TRACE (NEGATIVE); LEUKOCYTE ESTERASE ,URINE TRACE (NEGATIVE); NITRITE,URINE NEGATIVE (NEGATIVE); PH,URINE 5.5 (5-9); PROTEIN,URINE 1+ (NEGATIVE)
[2022-10-25 16:12] LABS: ALBUMIN 3.2 GM/DL (3.2-4.5); POTASSIUM 3.8 MMOL/L (3.6-5.0)
[2022-10-25 16:13] LABS: INR 1.1 (0.8-1.4); PROTHROMBIN TIME PATIENT 14.2 SEC (12.2-14.7)
[2022-10-25 16:14] LABS: CALCIUM 8.6 MG/DL (8.5-10.1)
[2022-10-25 16:15] LABS: TOTAL PROTEIN 7.3 GM/DL (6.4-8.2)
[2022-10-25 16:17] LABS: BILIRUBIN,TOTAL 2.3 MG/DL (0.1-1.0)
--- NOTE | 2022-10-25 16:17 | ED Fever ---
History of Present Illness General Chief Complaint: Post OP Complications/Pain Stated Complaint: POSSIBLE SEPSIS AFTER PANCREATIC STENT Nursing Triage Note: PT STATES HAVING A PANCREATIC STENT PLACED AT , GOT OUT ABOUT 4 WKS AGO AND THEN HAD TO GO BACK FOR SEPSIS, WAS SEEN HERE AND SENT THERE BY AMBULANCE. CC TODAY OF RUNNING A TEMP TODAY, TIRED, CONSTIPATED, CALLED AND WAS TOLD TO COME HERE AND GET CHECKED OUT. 1230 TYLENOL 1000 MG Source: patient, family, old records Exam Limitations: no limitations History of Present Illness Date Seen by Provider: Oct 25, 2022 Time Seen by Provider: 15:03 Initial Comments 82-year-old female with past medical history most notable for pancreatic adenocarcinoma recently diagnosed within the past couple of months complicated by biliary obstruction now with a biliary stent in place coming in with family due to fever today. The patient was in our emergency department late last month, had a fever, elevated white blood cell count, was admitted for severe sepsis to the hospital. Transferred to [facility]. Her blood culture grew out E. coli and she finished a course of Keflex. Her white blood cell count trended down less than 10 on discharge. Repeat white blood cell count just under 12 several days after discharge. Total bilirubin trended down just under 4. Patient has been doing well, but felt generally weak today, lightheaded, and temperature was greater than 101 Fahrenheit. No nausea, vomiting, diarrhea, chest pain, shortness of breath, abdominal pain, focal weakness or numbness, or any other concerns. Has been eating less, and has been losing weight. She is planning to go on hospice and meets with him shortly. She is not planning to do any formal treatment for this cancer. Allergies and Home Medications Allergies Coded Allergies: prochlorperazine (Unverified Allergy, Intermediate, 05/23/08) Patient Home Medication List Home Medication List Reviewed: Yes ALPRAZolam (ALPRAZolam) 0.25 Mg Tablet, 0.25 MG PO BID PRN for ANXIETY, (Reported) Entered as Reported by: GEORGIE MURILLO on 09/28/22 1140 Acetaminophen (Tylenol Extra Strength) 500 Mg Tablet, 500-1,000 MG PO Q6H PRN for PAIN-MILD (1-4), (Reported) Entered as Reported by: GEORGIE MURILLO on 09/28/22 1140 Amlodipine Besylate (Amlodipine Besylate) 2.5 Mg Tablet, 2.5 MG PO DAILY, (Reported) Entered as Reported by: GEORGIE MURILLO on 09/28/22 1140 Aspirin (Aspirin EC) 81 Mg Tablet.dr, 81 MG PO DAILY, (Reported) Entered as Reported by: GEORGIE MURILLO on 09/28/22 1140 Atenolol (Atenolol) 50 Mg Tablet, 50 MG PO DAILY, (Reported) Entered as Reported by: VIKKI CASH on 03/30/20 1356 Atorvastatin Calcium (Atorvastatin Calcium) 80 Mg Tablet, 80 MG PO HS, ( Reported) Entered as Reported by: GEORGIE MURILLO on 09/28/22 1140 Calcium Carbonate (Tums) 200 Mg Calcium (500 Mg) Tab.chew, 200 MG PO DAILY PRN for INDIGESTION, (Reported) Entered as Reported by: GEORGIE MURILLO on 09/28/22 1140 Carboxymethylcellulose Sodium (Refresh Tears) 0.5 % Drops, 1-2 DROPS OU UD PRN for DRY EYES, (Reported) Entered as Reported by: GEORGIE MURILLO on 09/28/22 1140 Cholecalciferol (Vitamin D3) (Vitamin D3) 25 Mcg Tablet, 25 MCG PO DAILY, (Reported) Entered as Reported by: VIKKI CASH on 03/30/20 1356 Clopidogrel Bisulfate (Clopidogrel) 75 Mg Tablet, 75 MG PO DAILY, (Reported) Entered as Reported by: KENYA REDDY on 06/18/18 1152 Docusate Sodium (Docusate Sodium) 100 Mg Capsule, 100 MG PO HS PRN for CONSTIPATION-1ST LINE, (Reported) Entered as Reported by: GEORGIE MURILLO on 09/28/22 1140 Gabapentin (Gabapentin) 100 Mg Capsule, 100 MG PO BID PRN for PAIN BREAKTROUGH, (Reported) Entered as Reported by: VIKKI CASH on 03/30/20 1356 Metformin HCl (Metformin HCl) 500 Mg Tablet, 500 MG PO DAILY, (Reported) Entered as Reported by: VIKKI CASH on 03/30/20 1356 Polyethylene Glycol 3350 (Miralax) 17 Gram Powd.pack, 17 GM PO HS PRN for CONSTIPATION-2ND LINE, (Reported) Entered as Reported by: GEORGIE MURILLO on 09/28/22 1140 Sitagliptin Phosphate (Januvia) 100 Mg Tablet, 100 MG PO DAILY, (Reported) Entered as Reported by: VIKKI CASH on 03/30/20 1356 Ubidecarenone (Co Q-10) 200 Mg Capsule, 200 MG PO DAILY, (Reported) Entered as Reported by: GEORGIE MURILLO on 09/28/22 1140 Review of Systems Review of Systems Constitutional: fever EENTM: no symptoms reported Respiratory: no symptoms reported Cardiovascular: no symptoms reported Gastrointestinal: see HPI Genitourinary: no symptoms reported Musculoskeletal: no symptoms reported Skin: no symptoms reported Psychiatric/Neurological: No Symptoms Reported Past Xmrzlmp-Tscjjt-Opvnxh Hx Patient Social History Tobacco Use?: No Substance use?: No Alcohol Use?: No Immunizations Up To Date First/Initial COVID19 Vaccinat: September COVID19 Vaccination Lico: September COVID19 Vaccination Date: SEPTEMBER Seasonal Allergies Seasonal Allergies: Yes Past Medical History Surgery/Hospitalization HX: HTN, 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, PANCREATIC MASS, YANET, HYSTERECTOMY, CARPAL TUNNEL BI LAT Surgeries: Yes (bilat CTR) Gallbladder, Hysterectomy Respiratory: Yes Sleep Apnea Currently Using CPAP: Yes Cardiac: Yes Hypertension Neurological: Yes (2018 stroke, L side effected) Stroke Genitourinary: No Gastrointestinal: Yes (rectal bleeding) Musculoskeletal: No Endocrine: Yes Diabetes, Non-Insulin dep HEENT: Yes Macular Degeneration Loss of Vision: Denies Cancer: No Psychosocial: No Integumentary: No Blood Disorders: No Family Medical History No Pertinent Family Hx Physical Exam Vital Signs - First Documented 10/25/22 15:11 Temp 37.4 Pulse 76 Resp 20 B/P (MAP) 137/60 (85) Pulse Ox 95 O2 Delivery Room Air Capillary Refill : Less Than 3 Seconds Height: 5'1.00" Weight: 157lbs. 0.0oz. 71.933207ys; 28.00 BMI Method:Stated General Appearance: WD/WN, no apparent distress Eyes: Bilateral Eye Normal Inspection HEENT: PERRL/EOMI, normal ENT inspection, pharynx normal Neck: non-tender, full range of motion, supple, normal inspection Respiratory: chest non-tender, lungs clear, normal breath sounds, no respiratory distress, no accessory muscle use Cardiovascular: regular rate, rhythm, no edema, no murmur Gastrointestinal: normal bowel sounds, non tender, soft; No distended, No guarding, No rebound Extremities: normal range of motion, non-tender, normal inspection, no pedal edema, no calf tenderness, normal capillary refill Neurologic/Psychiatric: no motor/sensory deficits, alert, normal mood/affect, oriented x 3 Skin: normal color, warm/dry Focused Exam Sepsis Stage: Sepsis Lactate Level 10/25/22 15:18: Lactic Acid Level 0.92 Time of Focused Exam: 16:35 Respiratory: Chest Non Tender, Lungs Clear, Normal Breath Sounds, No Accessory Muscle Use, No Respiratory Distress Cardiovascular: Regular Rate, Rhythm, No Edema, Normal Peripheral Pulses Capillary Refill: Less Than 3 Seconds Peripheral Pulses: 2+ Radial Pulses (R), 2+ Radial Pulses (L) Skin: normal color, warm/dry Lactic Acid Level Laboratory Tests Test 10/25/22 15:18 Lactic Acid Level 0.92 MMOL/L (0.50-2.00) Within 3hrs of presentation: Admin fluids, Admin ABX, Blood cultures prior to ABX's, Focus exam, Lactate level Progress/Results/Core Measures Suspected Sepsis SIRS Temperature: Pulse: 76 Respiratory Rate: 20 Laboratory Tests 10/25/22 15:18: White Blood Count 19.2H Blood Pressure 137 /60 Mean: 85 10/25/22 15:18: Lactic Acid Level 0.92 Laboratory Tests 10/25/22 15:18: Creatinine 0.84, INR Comment 1.1, Platelet Count 353, Total Bilirubin 2.3H Results/Orders Lab Results Laboratory Tests Test 10/25/22 15:18 10/25/22 15:52 Range/Units White Blood Count 19.2 H 4.3-11.0 10^3/uL Red Blood Count 2.65 L 3.80-5.11 10^6/uL Hemoglobin 8.0 L 11.5-16.0 g/dL Hematocrit 22 L 35-52 % Mean Corpuscular Volume 83 80-99 fL Mean Corpuscular Hemoglobin 30 25-34 pg Mean Corpuscular Hemoglobin Concent 36 32-36 g/dL Red Cell Distribution Width 15.6 H 10.0-14.5 % Platelet Count 353 130-400 10^3/uL Mean Platelet Volume 10.0 9.0-12.2 fL Immature Granulocyte % (Auto) 1 % Neutrophils (%) (Auto) 83 H 42-75 % Lymphocytes (%) (Auto) 10 L 12-44 % Monocytes (%) (Auto) 6 0-12 % Eosinophils (%) (Auto) 0 0-10 % Basophils (%) (Auto) 0 0-10 % Neutrophils # (Auto) 15.9 H 1.8-7.8 10^3/uL Lymphocytes # (Auto) 1.9 1.0-4.0 10^3/uL Monocytes # (Auto) 1.1 H 0.0-1.0 10^3/uL Eosinophils # (Auto) 0.0 0.0-0.3 10^3/uL Basophils # (Auto) 0.0 0.0-0.1 10^3/uL Immature Granulocyte # (Auto) 0.2 H 0.0-0.1 10^3/uL Prothrombin Time 14.2 12.2-14.7 SEC INR Comment 1.1 0.8-1.4 Activated Partial Thromboplast Time 42 H 24-35 SEC Sodium Level 126 L 135-145 MMOL/L Potassium Level 3.8 3.6-5.0 MMOL/L Chloride Level 93 L 98-107 MMOL/L Carbon Dioxide Level 22 21-32 MMOL/L Anion Gap 11 5-14 MMOL/L Blood Urea Nitrogen 22 H 7-18 MG/DL Creatinine 0.84 0.60-1.30 MG/DL Estimat Glomerular Filtration Rate 69 BUN/Creatinine Ratio 26 Glucose Level 197 H 70-105 MG/DL Lactic Acid Level 0.92 0.50-2.00 MMOL/L Calcium Level 8.6 8.5-10.1 MG/DL Corrected Calcium 9.2 8.5-10.1 MG/DL Total Bilirubin 2.3 H 0.1-1.0 MG/DL Aspartate Amino Transf (AST/SGOT) 37 H 5-34 U/L Alanine Aminotransferase (ALT/SGPT) 34 0-55 U/L Alkaline Phosphatase 272 H 40-136 U/L C-Reactive Protein High Sensitivity 3.00 H 0.00-0.50 MG/DL Total Protein 7.3 6.4-8.2 GM/DL Albumin 3.2 3.2-4.5 GM/DL Urine Color YELLOW Urine Clarity CLEAR Urine pH 5.5 5-9 Urine Specific [place] 1.010 L 1.016-1.022 Urine Protein 1+ H NEGATIVE Urine Glucose (UA) NEGATIVE NEGATIVE Urine Ketones TRACE H NEGATIVE Urine Nitrite NEGATIVE NEGATIVE Urine Bilirubin 1+ H NEGATIVE Urine Urobilinogen 1.0 < = 1.0 MG/DL Urine Leukocyte Esterase TRACE H NEGATIVE Urine RBC (Auto) NEGATIVE NEGATIVE Urine RBC NONE /HPF Urine WBC 2-5 /HPF Urine Squamous Epithelial Cells 25-50 H /HPF Urine Crystals PRESENT H /LPF Urine Amorphous Sediment RARE SHIRA URATES H /LPF Urine Bacteria FEW H /HPF Urine Casts PRESENT /LPF Urine Hyaline Casts 0-2 H /LPF Urine Mucus SMALL H /LPF Urine Culture Indicated NO My Orders Orders - NIURKA AVALOS MD Cbc With Automated Diff (10/25/22 15:31) Comprehensive Metabolic Panel (10/25/22 15:31) Blood Culture (10/25/22 15:31) Urinalysis (10/25/22 15:31) Urine Culture (10/25/22 15:31) Protime With Inr (10/25/22 15:31) Partial Thromboplastin Time (10/25/22 15:31) Chest 1 View, Ap/Pa Only (10/25/22 15:31) Ed Iv/Invasive Line Start (10/25/22 15:31) Vital Signs Adult Sepsis Patie Q15M (10/25/22 15:31) O2 (10/25/22 15:31) Remove Rings In Anticipation O (10/25/22 15:31) Lactic Acid Analyzer (10/25/22 15:31) Ns Iv 1000 Ml (Sodium Chloride 0.9%) (10/25/22 15:45) Ceftriaxone Iv/Im (Rocephin Iv/Im) (10/25/22 15:45) Hs C Reactive Protein (10/25/22 15:32) Manual Differential (10/25/22 15:18) Medications Given in ED Current Medications Medications Dose Ordered Sig/Jacob Route Start Time Stop Time Status Last Admin Dose Admin Ceftriaxone Sodium 1000 mg/ Sodium Chloride 50 ml @ 100 mls/hr ONCE ONCE IV 10/25/22 15:45 10/25/22 16:14 DC 10/25/22 15:56 100 MLS/HR Vital Signs/I&O 10/25/22 15:11 Temp 37.4 Pulse 76 Resp 20 B/P (MAP) 137/60 (85) Pulse Ox 95 O2 Delivery Room Air Capillary Refill : Less Than 3 Seconds Blood Pressure Mean: 85 Progress Note : Progress Note 82-year-old female with above history coming in due to fever. ABCs were intact and vitals were stable on presentation. The patient was given Tylenol prior to arrival which did help with her temperature. On review of the patient's chart and her recent admission, she grew out E. coli that was sensitive to c eftriaxone. I reviewed labs from [facility], and her white blood cell count on October 03 was 7.8, and on October 10 it was 11.9. Her bilirubin on October 03 was 3.7. An IV was placed here and basic labs were obtained and sepsis protocol was initiated. She was given a bolus of IV fluids. Lactic acid is normal, white blood cell count is just under 20,000, CRP elevated, kidney f unction within normal limits, and total bilirubin continues to trend down which is reassuring. The patient is showing signs of sepsis but not showing any signs of severe sepsis. I reassessed her and after the initial fluid bolus, she appears euvolemic, given that the patient is DNR, and will be going to hospice within the next week likely, I think further fluids at this time could be detrimental to her from a respiratory standpoint. We can reassess later. Chest x-ray ordered and interpreted by me showing no obvious pneumonia, no pneumothorax, normal cardiac silhouette. I contacted Dr. Thomas who will admit the patient to the medical surgical floor under inpatient status for further evaluation and management while her cultures are growing out. Of note, the patient is DNR, and will likely be on hospice this week. She does not want to escalate care beyond to the IV medications. Specifically, would not want any type of dialysis or central line if needed. Diagnostic Imaging Diagonstic Imaging: Xray (chest) Comments NAME: DOROTHY KWONG Serina MED REC#: [id number] PT STATUS: REG ER : 1940 PHYSICIAN: NIURKA AVALOS MD ADMIT DATE: 10/25/22/ER Draft Date of Exam:10/25/22 CHEST 1 VIEW, AP/PA ONLY INDICATION: Sepsis and fever. TIME OF EXAM: 4:09 p.m. COMPARISON: Correlation is made with prior chest from 09/27/2022. FINDINGS: The heart size is stable. The lungs are clear. No infiltrates are seen. There is no effusion or pneumothorax. IMPRESSION: No acute cardiopulmonary process is detected. Dictated on workstation # [id number] Dict: 10/25/22 1618 Trans: 10/25/22 1620 2022-0560 Interpreted by: EDIN BLOCK MD Electronically signed by: Departure Impression Primary Impression: Sepsis Qualified Codes: A41.9 - Sepsis, unspecified organism Additional Impressions: Pancreatic adenocarcinoma Fever Qualified Codes: R50.81 - Fever presenting with conditions classified elsewhere Disposition: ADMITTED INPATIENT Condition: Stable Admissions Decision to Admit Reason: Admit from ER (General) Decision to Admit/Date: Oct 25, 2022 Time/Decision to Admit Time: 16:30 Departure-Patient Inst. Referrals: HUSSEIN IBARRA DO (PCP/Family) Primary Care Physician NIURKA AVALOS MD Oct 25, 2022 16:17
[2022-10-25 16:19] LABS: CREATININE SERUM 0.84 MG/DL (0.60-1.30)
--- NOTE | 2022-10-25 16:20 | Diagnostic Imaging Report ---
INDICATION: Sepsis and fever. TIME OF EXAM: 4:09 p.m. COMPARISON: Correlation is made with prior chest from 09/27/2022. FINDINGS: The heart size is stable. The lungs are clear. No infiltrates are seen. There is no effusion or pneumothorax. IMPRESSION: No acute cardiopulmonary process is detected. Dictated by: Dictated on workstation # [id number]
[2022-10-25 16:22] LABS: AMORPHOUS SEDIMENT,UR RARE AMOR URATES /LPF; BACTERIA,URINE FEW /HPF; HYALINE CASTS, URINE 0-2 /LPF; SQUAMOUS EPITHELIAL CELL,UR 25-50 /HPF
[2022-10-25 16:45] LABS: ANISOCYTOSIS SLIGHT; BAND NEUTROPHILS 2 %; LYMPHOCYTES % (MANUAL) 7 %; MONOCYTES % (MANUAL) 5 %; NEUTROPHILS % (MANUAL) 86 %; PLATELET ESTIMATE NORMAL
[2022-10-25 17:53] VITALS: BP 137/60
[2022-10-25] MEDS ORDERED: ACETAMINOPHEN 500 MG TAB (TYLENOL) PO PRN (18:45)
[2022-10-25] MEDS ORDERED: CATHETER FLUSH 10 ML SYR IVP PRN (18:45)
[2022-10-25] MEDS ORDERED: ONDANSETRON 4 MG/2 ML (SDV) Z0FRAN IV PRN (18:45)
[2022-10-25 20:50] VITALS: BP 148/68
[2022-10-25] MEDS: inSUlin ASPART (NovoLOG) 1 UNIT/0.01 ML (CHARGE PER UNIT) SC SCH (21:26)
[2022-10-25] MEDS: CATHETER FLUSH 10 ML SYR IVP SCH (22:34)
[2022-10-25 23:14] VITALS: BP 123/75
[2022-10-26 03:01] VITALS: BP 124/69
[2022-10-26] MEDS: inSUlin ASPART (NovoLOG) 1 UNIT/0.01 ML (CHARGE PER UNIT) SC SCH ×5 (06:03→21:21)
[2022-10-26] MEDS: CATHETER FLUSH 10 ML SYR IVP SCH ×3 (06:03→21:06)
[2022-10-26 06:20] LABS: BASOPHILS % (AUTO) 0 % (0-10); EOSINOPHILS # (AUTO) 0.1 10^3/uL (0.0-0.3); EOSINOPHILS % (AUTO) 1 % (0-10); HEMOGLOBIN 7.2 g/dL (11.5-16.0); LYMPHOCYTES % (AUTO) 19 % (12-44); MEAN CORPUSCULAR HEMOGLOBIN 30 pg (25-34); MEAN CORPUSCULAR HGB CONC 36 g/dL (32-36); MEAN CORPUSCULAR VOLUME 84 fL (80-99); MEAN PLATELET VOLUME 9.9 fL (9.0-12.2); MONOCYTES # (AUTO) 0.9 10^3/uL (0.0-1.0); MONOCYTES % (AUTO) 8 % (0-12); NEUTROPHILS # (AUTO) 7.2 10^3/uL (1.8-7.8); NEUTROPHILS % (AUTO) 70 % (42-75); PLATELET COUNT 277 10^3/uL (130-400); WHITE BLOOD COUNT 10.3 10^3/uL (4.3-11.0)
[2022-10-26 06:23] LABS: HEMATOCRIT 20 % (35-52)
[2022-10-26 08:22] VITALS: BP 157/65
[2022-10-26] MEDS: LIPASE/AMYLASE/PROTEASE (PANCRELIPASE) 5,000 UNITS CAP PO SCH ×3 (08:47→17:36)
[2022-10-26] MEDS: amLODIPine 2.5MG (NORVASC) TAB PO SCH (08:48)
[2022-10-26] MEDS: CLOPIDOGREL 75 MG (PLAVIX) TABLET PO SCH (08:48)
[2022-10-26] MEDS ORDERED: PANTOPRAZOLE 40 MG (PROTONIX) TAB PO SCH (09:00)
--- NOTE | 2022-10-26 11:06 | History & Physical-Hospitalist ---
History of Present Illness HPI/Chief Complaint Patient is an 82-year-old female known to me from recent admission and from the community who presented to the emergency department with fever and chills. She was recently admitted here following a pancreatic stent placed at where she was bacteremic with E. coli. She transferred back up to during that visit and was there for 5 days on IV antibiotics. She went home on oral antibiotics and completed her course roughly 8 or 9 days ago. Even on antibiotics though her vgccphpw-ej-cnp states that her white count was trending up. She went to see a [employer] 2 nights ago and thought that she was just tired from that but throughout the day yesterday continued to feel weak and was chilling. She was also constipated. Her vynogbmd-is-zsk who is a nurse practitioner checked her temperature throughout the day and yesterday afternoon she developed a fever prompting them to seek evaluation in the emergency depa rtment. She was found to have a worsening leukocytosis here and admitted for IV abx and sepsis. This morning she reports feeling much better and nearing her baseline. Source: patient Date Seen 10/26/22 Time Seen by a Provider: 09:45 Attending Physician Clifford Younger DO PCP Admitting Physician: Sita Monroe MD Attending Physician: Sita Monroe MD Referring Physician Date of Admission Oct 25, 2022 at 17:19 Home Medications & Allergies Home Medications Reviewed patient Home Medication Reconciliation performed by pharmacy medication reconciliations hearing health technician and/or nursing. Patients Allergies have been reviewed. Allergies Allergies Coded Allergies prochlorperazine (Unverified Allergy, Intermediate, 05/23/08) Past Udgidnv-Qjekrr-Bslcpb Hx Patient Social History Tobacco Use?: No Use of E-Cig and/or Vaping dev: No Substance use?: No Alcohol Use?: No Pt feels they are or have been: No Immunizations Up To Date Date of Influenza Vaccine: Sep 28, 2022 First/Initial COVID19 Vaccinat: SEPTEMBER Second COVID19 Vaccination Lico: SEPTEMBER Tetanus Booster (TDap): Unknown Date of Pneumonia Vaccine: Apr 09, 2011 Seasonal Allergies Seasonal Allergies: Yes Current Status Advance Directives: Yes Advance Directive Location: Home Communicates: Verbally Primary Language: [place] Preferred Spoken Language: [place] Is interpretation needed?: No Sensory deficits: Vision impairment Additional sensory deficits: BLIND LEFT EYE, MACULAR DEGENERATION RIGHT EYE Implanted or Applied Medical D: None Past Medical History Surgeries: Gallbladder, Hysterectomy Sleep Apnea Currently Using CPAP: Yes Hypertension Stroke Diabetes, Non-Insulin dep Macular Degeneration Loss of Vision: Denies Blood Disorders: No Family Medical History No Pertinent Family Hx Review of Systems Constitutional: see HPI Physical Exam Physical Exam Vital Signs Vital Signs - First Documented 10/25/22 10/25/22 15:11 17:53 Temp 37.4 Pulse 76 Resp 20 B/P (MAP) 137/60 (85) Pulse Ox 95 O2 Delivery Room Air FiO2 21 Capillary Refill : Less Than 3 Seconds Height, Weight, BMI Height: 5'1.00" Weight: 157lbs. 0.0oz. 71.651352fi; 25.68 BMI Method:Stated General Appearance: No Apparent Distress, WD/WN Respiratory: Lungs Clear, No Respiratory Distress Cardiovascular: Regular Rate, Rhythm, No Murmur Gastrointestinal: Normal Bowel Sounds, Soft Neurologic/Psychiatric: Alert, Oriented x3 Results Results/Procedures Labs Patient resulted labs reviewed. Assessment/Plan Admission Diagnosis Sepsis Admission Status: Inpatient Order (span 2 midnights) Reason for Inpatient Admission: see below Assessment and Plan Sepsis-POA Pancreatic adenocarcinoma Anemia Continue IV abx Await cultures Will likely need long course of abx as an outpatient Palliative care planned upon discharge I called and spoke with Hector Alejo from [facility] about this today HTN NIDDMII h/o CVA Resume home meds SITA MONROE MD Oct 26, 2022 11:06
[2022-10-26 11:30] VITALS: BP 151/61
[2022-10-26] MEDS ORDERED: OMEP40CA6 PO (11:52)
[2022-10-26] MEDS ORDERED: LOSA1TAB23 PO (12:06)
[2022-10-26] MEDS ORDERED: LIPA1CAP67 PO (12:06)
[2022-10-26] MEDS ORDERED: ALPRAZolam 0.25 MG (XANAX) TAB PO PRN (13:45)
[2022-10-26] MEDS: cefTRIAXone IV/IM 1,000 MG in NS (IVPB) 50 ML IV SCH (15:15)
[2022-10-26 16:00] VITALS: BP 140/63
[2022-10-26 19:24] VITALS: BP 165/71
[2022-10-26] MEDS ORDERED: amLODIPine 2.5MG (NORVASC) TAB PO SCH (21:00)
[2022-10-26] MEDS ORDERED: NON-FORMULARY MEDICATION 1 EA EA (Omeprazole 40 MG) PO SCH (21:00)
[2022-10-26] MEDS: GABAPENTIN 100 MG (NEURONTIN) CAP PO SCH (21:05)
[2022-10-26] MEDS: PANTOPRAZOLE 40 MG (PROTONIX) TAB PO SCH (21:05)
[2022-10-26 23:59] VITALS: BP 165/72
[2022-10-27 03:01] VITALS: BP 158/72
[2022-10-27] MEDS: inSUlin ASPART (NovoLOG) 1 UNIT/0.01 ML (CHARGE PER UNIT) SC SCH ×5 (05:20→20:36)
[2022-10-27 06:00] LABS: HEMATOCRIT 21 % (35-52); HEMOGLOBIN 7.4 g/dL (11.5-16.0); MEAN CORPUSCULAR HEMOGLOBIN 31 pg (25-34); MEAN CORPUSCULAR HGB CONC 36 g/dL (32-36); MEAN CORPUSCULAR VOLUME 85 fL (80-99); PLATELET COUNT 313 10^3/uL (130-400); WHITE BLOOD COUNT 7.2 10^3/uL (4.3-11.0)
[2022-10-27 06:15] LABS: POTASSIUM 3.6 MMOL/L (3.6-5.0)
[2022-10-27 06:16] LABS: CALCIUM 8.4 MG/DL (8.5-10.1)
[2022-10-27 06:21] LABS: CREATININE SERUM 0.73 MG/DL (0.60-1.30)
[2022-10-27] MEDS: CATHETER FLUSH 10 ML SYR IVP SCH ×3 (06:48→20:37)
[2022-10-27] MEDS: metFORMIN 500 MG (GLUCOPHAGE) TAB PO SCH (06:48)
[2022-10-27 07:27] VITALS: BP 168/70
[2022-10-27] MEDS: LIPASE/AMYLASE/PROTEASE (PANCRELIPASE) 5,000 UNITS CAP PO SCH ×2 (08:52→12:02)
[2022-10-27] MEDS ORDERED: NON-FORMULARY MEDICATION 1 EA EA (Sitagliptin Phosphate (Januvia) 100 MG) PO SCH (09:00)
[2022-10-27] MEDS ORDERED: CLOPIDOGREL 75 MG (PLAVIX) TABLET PO SCH (09:00)
[2022-10-27] MEDS ORDERED: NON-FORMULARY MEDICATION 1 EA EA (Ubidecarenone (Co Q-10) 200 MG) PO SCH (09:00)
[2022-10-27] MEDS ORDERED: NON-FORMULARY MEDICATION 1 EA EA (Atenolol 50 MG) PO SCH (09:00)
[2022-10-27] MEDS: VITAMIN D3 25 MCG (1,000 UNITS) TABLET PO SCH (09:40)
[2022-10-27] MEDS: GABAPENTIN 100 MG (NEURONTIN) CAP PO SCH ×2 (09:40→20:36)
[2022-10-27] MEDS: ATENOLOL 25 MG (TENORMIN) TAB PO SCH (09:40)
[2022-10-27] MEDS: amLODIPine 2.5MG (NORVASC) TAB PO SCH (09:40)
[2022-10-27] MEDS: LOSARTAN 100 MG (COZAAR) TABLET PO SCH (09:41)
[2022-10-27] MEDS: ASPIRIN E.C. 81 MG (ECOTRIN) TAB PO SCH (09:41)
[2022-10-27] MEDS: CLOPIDOGREL 75 MG (PLAVIX) TABLET PO SCH (09:41)
[2022-10-27 11:28] VITALS: BP 155/68
[2022-10-27] MEDS ORDERED: PATIENT MAY USE OWN MED,SINGLE MED PO SCH (14:15)
--- NOTE | 2022-10-27 14:40 | Progress Note - Hospitalist ---
Subjective HPI/CC On Admission Date Seen by Provider: Oct 27, 2022 Patient is an 82-year-old female known to me from recent admission and from the community who presented to the emergency department with fever and chills. She was recently admitted here following a pancreatic stent placed at where she was bacteremic with E. coli. She transferred back up to during that visit and was there for 5 days on IV antibiotics. She went home on oral antibiotics and completed her course roughly 8 or 9 days ago. Even on antibiotics though her awkljcni-yu-vfb states that her white count was trending up. She went to see a [employer] 2 nights ago and thought that she was just tired from that but throughout the day yesterday continued to feel weak and was chilling. She was also constipated. Her myilkduf-qq-snm who is a nurse practitioner checked her temperature throughout the day and yesterday afternoon she developed a fever prompting them to seek evaluation in the emergency department. She was found to have a worsening leukocytosis here and admitted for IV abx and sepsis. This morning she reports feeling much better and nearing her baseline. Subjective/Events-last exam Pt reports doing well. Up walking without difficulty. No complaints. Reviewed labs with her and daughter in law. Focused Exam Lactate Level 10/25/22 15:18: Lactic Acid Level 0.92 Time of Focused Exam: 16:35 Objective Exam Vital Signs Vital Signs Date Time Temp Pulse Resp B/P (MAP) Pulse Ox O2 Delivery O2 Flow Rate FiO2 10/27/22 11:28 36.8 77 18 155/68 (97) 96 Room Air 10/25/22 17:53 21 Capillary Refill : Less Than 3 Seconds General Appearance: No Apparent Distress, Chronically ill Respiratory: Lungs Clear, No Respiratory Distress Cardiovascular: Regular Rate, Rhythm, No Murmur Neurologic/Psychiatric: Alert, Oriented x3 Results/Procedures Lab Laboratory Tests 10/27/22 05:22 Patient resulted labs reviewed. Assessment/Plan Assessment and Plan Assess & Plan/Chief Complaint Sepsis-POA Pancreatic adenocarcinoma Anemia Continue IV abx Blood cultures NGTD Urine with 3 or more isolates- suggestive of contaminant Will likely need long course of abx as an outpatient Palliative care planned upon discharge HTN NIDDMII h/o CVA Continue home meds SITA GEORGE MD Oct 27, 2022 2:39 pm
--- NOTE | 2022-10-27 15:04 | D/C HH Face to Face Order ---
D/C Face to Face Orders Instructions for Patient Via [facility], Patient Instructions/FollowUp: Please continue to take your medications as written. Please follow up with your primary care doctor to follow up this hospital stay. Physician to follow Patient: Hector Alejo NP Discharge Diet for Home: No Restrictions Patient Data-Allergies,Ht & Wt Patient Allergies: Coded Allergies: prochlorperazine (Unverified Allergy, Intermediate, 05/23/08) Height (Feet): 5 Height (Inches): 1.00 Weight (Pounds): 157 Weight (Ounces): 0.0 Home Health Need/Face to Face Date of Face to Face: Oct 27, 2022 Clinical Findings: Generalized weakness and fatigue I have seen Pt cvpc-ri-uonp: Yes Discharged To: Home Diagnosis/Conditions: Pancreatic cancer Patient is Homebound due to: Muscle weakness Homebound Status Due to the above stated illness, injury or surgical procedure (medical condition or diagnosis) and associated clinical findings, the patient is homebound because of his/her inability to leave home except with aid of a supportive device and/or person AND leaving the home requires a considerable and taxing effort or is medically contraindicated. Pt req the following assistanc: Aid of another person, [facility] Health Nursing Orders Home Health Services Order: Nursing Services, Physical Therapy-Evaluate & Treat Home Health Infusion Therapy Line Start Date: Oct 25, 2022 Therapy Orders Therapy Orders: Physical Therapy, PT to assess for OT Therapy Specific Orders: Eval assistive deivces, Teach enviro modifications/safety, Increase strength/endurance Certify Stmt I certify that this patient is under my care and that I, a nurse practitioner or a physician; a podiatrist assistant working with me, had a face to face encounter that - meets the physician face to face encounter requirements with this patient as dated. SITA GEORGE MD Oct 27, 2022 15:04
[2022-10-27] MEDS: cefTRIAXone IV/IM 1,000 MG in NS (IVPB) 50 ML IV SCH (15:26)
[2022-10-27 15:49] VITALS: BP 127/71
[2022-10-27 19:52] VITALS: BP 162/67
[2022-10-27] MEDS: PANTOPRAZOLE 40 MG (PROTONIX) TAB PO SCH (20:36)
[2022-10-27 23:34] VITALS: BP 141/68
[2022-10-28 03:09] VITALS: BP 137/84
[2022-10-28 05:55] LABS: HEMATOCRIT 21 % (35-52); HEMOGLOBIN 7.5 g/dL (11.5-16.0); MEAN CORPUSCULAR HEMOGLOBIN 30 pg (25-34); MEAN CORPUSCULAR HGB CONC 35 g/dL (32-36); MEAN CORPUSCULAR VOLUME 86 fL (80-99); MEAN PLATELET VOLUME 9.6 fL (9.0-12.2); PLATELET COUNT 287 10^3/uL (130-400); WHITE BLOOD COUNT 8.2 10^3/uL (4.3-11.0)
[2022-10-28] MEDS: CATHETER FLUSH 10 ML SYR IVP SCH (06:22)
[2022-10-28] MEDS: metFORMIN 500 MG (GLUCOPHAGE) TAB PO SCH (06:23)
[2022-10-28] MEDS: inSUlin ASPART (NovoLOG) 1 UNIT/0.01 ML (CHARGE PER UNIT) SC SCH ×2 (06:23→11:21)
[2022-10-28 06:25] LABS: CALCIUM 8.5 MG/DL (8.5-10.1); CREATININE SERUM 0.78 MG/DL (0.60-1.30)
[2022-10-28 08:44] VITALS: BP 143/67
[2022-10-28] MEDS: GABAPENTIN 100 MG (NEURONTIN) CAP PO SCH (09:09)
[2022-10-28] MEDS: ATENOLOL 25 MG (TENORMIN) TAB PO SCH (09:09)
[2022-10-28] MEDS: CLOPIDOGREL 75 MG (PLAVIX) TABLET PO SCH (09:09)
[2022-10-28] MEDS: VITAMIN D3 25 MCG (1,000 UNITS) TABLET PO SCH (09:09)
[2022-10-28] MEDS: LOSARTAN 100 MG (COZAAR) TABLET PO SCH (09:10)
[2022-10-28] MEDS: amLODIPine 2.5MG (NORVASC) TAB PO SCH (09:10)
[2022-10-28] MEDS: ASPIRIN E.C. 81 MG (ECOTRIN) TAB PO SCH (09:10)
[2022-10-28] MEDS ORDERED: CEFD300C3 PO (11:28)
[2022-10-28 12:25] VITALS: BP 143/67
--- NOTE | 2022-10-30 11:36 | Discharge Summary ---
Diagnosis/Chief Complaint Date of Admission Oct 25, 2022 at 17:19 Date of Discharge Oct 28, 2022 at 14:50 Discharge Date: Oct 28, 2022 Admission Diagnosis Sepsis Primary Care Clifford Younger DO Discharge Summary Discharge Physical Exam Allergies: Coded Allergies: prochlorperazine (Unverified Allergy, Intermediate, 05/23/08) Vitals & I&Os Vital Signs Date Time Temp Pulse Resp B/P (MAP) Pulse Ox O2 Delivery O2 Flow Rate FiO2 10/28/22 12:25 36.7 76 19 143/67 98 Room Air 10/25/22 17:53 21 General Appearance: No Apparent Distress, Chronically ill Respiratory: Lungs Clear, No Respiratory Distress Cardiovascular: Regular Rate, Rhythm, No Murmur Neurologic/Psychiatric: Alert, Oriented x3 Hospital Course Patient was admitted to the hospital due to concerns for sepsis. She had just been in the hospital here and at due to gram-negative bacteremia that grew pansensitive E. coli. She became febrile again a few days after stopping her antibiotics. She was treated with IV antibiotics here and improved. Both blood cultures and urine cultures were not indicative of any infection but given her improvement with treatment she was continued on antibiotics for a longer course upon discharge. Family plans to start probiotics to help prevent C. difficile. She has recently been diagnosed with pancreatic adenocarcinoma and they are scheduled to meet with Hector Alejo of the [facility] next week. I did call during this admission and discuss her case with him. He was discharged home in stable improved condition with home health to assist with her transition home. Labs (last 24 hrs) Microbiology 10/25/22 Urine Culture - Final, Complete 3 or more isolates 10/25/22 Blood Culture - Preliminary, Resulted No growth Patient resulted labs reviewed. Discussion & Recommendations Discharge Planning: >30 minutes discharge planning Discharge Home Medications: Active Scripts Active Cefdinir 300 Mg Capsule 300 Mg PO BID Reported Losartan-Hctz 100-25 mg Tab (Losartan/Hydrochlorothiazide) 100 Mg-25 Mg Tablet 1 Each PO DAILY Creon 36,000 Units Capsule (Lipase/Protease/Amylase) 36K-114K Capsule. 1 Ea PO AC Omeprazole 40 Mg Capsule. 40 Mg PO HS Co Q-10 (Ubidecarenone) 200 Mg Capsule 200 Mg PO DAILY ALPRAZolam 0.25 Mg Tablet 0.25 Mg PO BID PRN Atorvastatin Calcium 80 Mg Tablet 80 Mg PO HS Amlodipine Besylate 2.5 Mg Tablet 2.5 Mg PO HS Aspirin EC (Aspirin) 81 Mg Tablet.dr 81 Mg PO DAILY Vitamin D3 (Cholecalciferol (Vitamin D3)) 25 Mcg Tablet 25 Mcg PO DAILY Januvia (Sitagliptin Phosphate) 100 Mg Tablet 100 Mg PO DAILY Metformin HCl 500 Mg Tablet 500 Mg PO DAILY Atenolol 50 Mg Tablet 50 Mg PO DAILY Gabapentin 100 Mg Capsule 100 Mg PO BID Clopidogrel (Clopidogrel Bisulfate) 75 Mg Tablet 75 Mg PO DAILY Instructions to patient/family Please see electronic discharge instructions given to patient. SITA GEORGE MD Oct 30, 2022 11:36
== END 2022-10-28 14:50 | disposition home health service (06) | DRG 872 ==
LOC: EDUNIT# 15:02 → ER 15:04 → 4TH 17:19
PROVIDERS: ADMIT Family Medicine; ATTEND Family Medicine
PROC: 5A09357 Assistance with Respiratory Ventilation, Less than 24 Consecutive Hours, Continuous Positive Airway Pressure (ICD-10-PCS; principal; 2022-10-25)
DX: A41.9 Sepsis, unspecified organism (principal); C25.9 Malignant neoplasm of pancreas, unspecified; D64.9 Anemia, unspecified; I10 Essential (primary) hypertension; E11.9 Type 2 diabetes mellitus without complications; Z86.73 Personal history of transient ischemic attack (TIA), and cerebral infarction without residual deficits; H35.30 Unspecified macular degeneration; G47.30 Sleep apnea, unspecified; Z79.82 Long term (current) use of aspirin; Z79.84 Long term (current) use of oral hypoglycemic drugs; Z79.899 Other long term (current) drug therapy
CPT/HCPCS: 36415; 71045; 80048; 80053; 81000; 82947; 83605; 85007; 85025; 85027; 85610; 85730; 86141; 87040; 87088